=== PATIENT | female | born 1985 | race Caucasian/White ===

== ENCOUNTER 2016-06-25 09:29 | Emergency (ER) | payer MEDICAID ==
[2016-06-25 09:44] VITALS: BP 133/59
== END 2016-06-25 10:42 | disposition left against medical advice (07) ==
LOC: ER 09:29
DX: Z53.21 Procedure and treatment not carried out due to patient leaving prior to being seen by health care provider (principal)

== ENCOUNTER 2017-09-26 12:33 | Emergency (ER) | payer MEDICAID ==
[2017-09-26] MEDS ORDERED: DEXAMETHASONE SOD PHOS INJ 10 MG/1 ML VIAL IM ONE (13:36)
[2017-09-26] MEDS ORDERED: KETOROLAC TROMETHAMINE 60 MG/2 ML SDV IM ONE (13:36)
--- NOTE | 2017-09-26 13:37 | ER Document Report ---
ED General - General Chief Complaint: Sore Throat Stated Complaint: SORE THROAT Time Seen by Provider: 09/26/17 13:17 Mode of Arrival: Ambulatory Information source: Patient Notes: 31-year-old female presents with complaints of sore throat fever body aches. Patient believes she has strep Patient has no known sick contacts, denies any nausea vomiting TRAVEL OUTSIDE OF THE [place] IN LAST 30 DAYS: No - HPI Onset: Yesterday Onset/Duration: Sudden Quality of pain: Achy Severity: Mild Pain Level: 1 Associated symptoms: Body/muscle aches, Fever, Sore throat Exacerbated by: Denies Relieved by: Denies Similar symptoms previously: No Recently seen / treated by doctor: No - Related Data Allergies/Adverse Reactions: No Known Allergies Allergy (Verified 09/26/17 12:34) Past Medical History - Social History Smoking Status: Never Smoker Cigarette use (# per day): No Chew tobacco use (# tins/day): No Smoking Education Provided: No Frequency of alcohol use: None Drug Abuse: None Family History: Reviewed & Not Pertinent Patient has suicidal ideation: No Patient has homicidal ideation: No Pulmonary Medical History: Denies: Hx Asthma Neurological Medical History: Reports: Hx Migraine Endocrine Medical History: Denies: Hx Diabetes Mellitus Type 2 Renal/ Medical History: Denies: Hx Peritoneal Dialysis Past Surgical History: Reports: Hx Section, Hx Cholecystectomy - Immunizations Hx Diphtheria, Pertussis, Tetanus Vaccination: Yes Hx Pneumococcal Vaccination: 04/28/00 Review of Systems - Review of Systems Notes: REVIEW OF SYSTEMS: CONSTITUTIONAL : Admits to fever EENT: Admits to sore throat CARDIOVASCULAR: Denies chest pain. Denies palpitations or racing or irregular heart beat. Denies ankle edema. RESPIRATORY: Denies cough, cold, or chest congestion. Denies shortness of breath, difficulty breathing, or wheezing. GASTROINTESTINAL: Denies abdominal pain or distention. Denies nausea, vomiting , or diarrhea. Denies blood in vomitus, stools, or per rectum. Denies black, tarry stools. Denies constipation. GENITOURINARY: Denies difficulty urinating, painful urination, burning, frequency, blood in urine, or discharge. FEMALE GENITOURINARY: Denies vaginal bleeding, heavy or abnormal periods, irregular periods. Denies vaginal discharge or odor. MUSCULOSKELETAL: Admits body aches SKIN: Denies rash, lesions or sores. HEMATOLOGIC : Denies easy bruising or bleeding. LYMPHATIC: Denies swollen, enlarged glands. NEUROLOGICAL: Denies confusion or altered mental status. Denies passing out or loss of consciousness. Denies dizziness or lightheadedness. Denies headache. Denies weakness or paralysis or loss of use of either side. Denies problems with gait or speech. Denies sensory loss, numbness, or tingling. Denies seizures. PSYCHIATRIC: Denies anxiety or stress. Denies depression, suicidal ideation, or homicidal ideation. ALL OTHER SYSTEMS REVIEWED AND NEGATIVE. PHYSICAL EXAMINATION: GENERAL: Well-appearing, well-nourished and in no acute distress. HEAD: Atraumatic, normocephalic. EYES: Pupils equal round and reactive to light, extraocular movements intact, conjunctiva are normal. ENT: Bilateral tonsillar enlargement with exudates uvula midline airway patent NECK: Normal range of motion, supple without lymphadenopathy LUNGS: Breath sounds clear to auscultation bilaterally and equal. No wheezes rales or rhonchi. HEART: Regular rate and rhythm without murmurs ABDOMEN: Soft, nontender, nondistended abdomen. No guarding, no rebound. No masses appreciated. Female : deferred Musculoskeletal: Normal range of motion, no pitting or edema. No cyanosis. NEUROLOGICAL: Cranial nerves grossly intact. Normal speech, normal gait. Normal sensory, motor exams PSYCH: Normal mood, normal affect. SKIN: Warm, Dry, normal turgor, no rashes or lesions noted. Dictation was performed using [employer] voice recognition software Physical Exam - Vital signs Vitals: Temp Pulse Resp BP Pulse Ox 99.2 F 104 H 18 127/68 H 97 09/26/17 12:40 09/26/17 12:40 09/26/17 12:40 09/26/17 12:40 09/26/17 12:40 Course - Re-evaluation Re-evalutation: 09/26/17 13:47 Patient strep was positive, patient will be treated with antibiotics and Decadron Toradol \ After performing a Medical Screening Examination, I estimate there is LOW risk for CENTRAL CORD SYNDROME, LUDWIGS ANGINA, PERITONSILLAR ABSCESS, RETROPHARYNGEAL ABSCESS, EPIDURAL MASS LESION, SEVERE SPINAL STENOSIS, ARTERIAL DISSECTION, MENINGITIS, or ACUTE CORONARY SYNDROME, thus I consider the discharge disposition reasonable. I have reevaluated this patient multiple times and no significant life threatening changes are noted. The patient and I have discussed the diagnosis and risks, and we agree with discharging home to follow-up on an outpatient basis with the understanding that symptoms and presentations can change. We also discussed returning to the Emergency Department immediately if new or worsening symptoms occur. We have discussed the symptoms which are most concerning (e.g., saddle anesthesia, urinary or bowel incontinence or retention, changing or worsening pain) that necessitate immediate return. - Vital Signs Vital signs: Temp Pulse Resp BP Pulse Ox 99.6 F 90 18 130/58 H 97 09/26/17 14:06 09/26/17 14:06 09/26/17 14:06 09/26/17 14:06 09/26/17 14:06 Discharge - Discharge Clinical Impression: Strep pharyngitis, Body aches Condition: Stable Disposition: HOME, SELF-CARE Instructions: Strep Throat ([facility]) Prescriptions: Amoxicillin 875 mg PO BID #20 tablet Referrals: JOEY ARORA DO [Primary Care Provider] - Follow up as needed
[2017-09-26 14:06] VITALS: BP 130/58
== END 2017-09-26 14:08 | disposition home or self-care (01) ==
LOC: ER 12:33
DX: J02.0 Streptococcal pharyngitis (principal); M79.1 Myalgia; R50.9 Fever, unspecified; E11.9 Type 2 diabetes mellitus without complications
CPT/HCPCS: 99283; 96372; 87880; J1885; J1100

== ENCOUNTER 2017-12-10 23:28 | Emergency (ER) | payer MEDICAID ==
[2017-12-10 23:51] VITALS: BP 147/72
[2017-12-11] MEDS ORDERED: METOCLOPRAMIDE HCL INJ/PF 10 MG/2 ML SDV IV ONE (01:02)
[2017-12-11] MEDS ORDERED: NORMAL SALINE 1000 ML 1,000 ML IV ONE (01:02)
[2017-12-11 01:39] LABS: ABSOLUTE LYMPHOCYTES (AUTO) 2.4 10^3/uL (0.5-4.7); ABSOLUTE MONOCYTES (AUTO) 0.9 10^3/uL (0.1-1.4); ABSOLUTE NEUT (AUTO) 12.8 10^3/uL (1.7-8.2); BASOPHILS % (AUTO) 0.1 % (0-2); HEMATOCRIT 37.9 % (36.0-47.0); HEMOGLOBIN 13.4 g/dL (12.0-15.5); LYMPHOCYTES % (AUTO) 15.1 % (13-45); MEAN CORPUSCULAR HEMOGLOBIN 31.7 pg (27.0-33.4); MEAN CORPUSCULAR HGB CONC 35.3 g/dL (32.0-36.0); MEAN CORPUSCULAR VOLUME 90 fl (80-97); MONOCYTES % (AUTO) 5.5 % (3-13); PLATELET COUNT 367 10^3/uL (150-450); RED BLOOD COUNT 4.22 10^6/uL (3.72-5.28); SEGMENTED NEUTROPHILS % (AUTO) 79.3 % (42-78); TOTAL CELLS COUNTED % (AUTO) 100 %; WHITE BLOOD COUNT 16.2 10^3/uL (4.0-10.5)
[2017-12-11 01:57] LABS: ANION GAP 17 (5-19); BLOOD UREA NITROGEN 8 mg/dL (7-20); CALCIUM 10.1 mg/dL (8.4-10.2); CARBON DIOXIDE 21 mmol/L (22-30); CHLORIDE 100 mmol/L (98-107); GLUCOSE 115 mg/dL (75-110); SODIUM 137.6 mmol/L (137-145)
[2017-12-11 02:02] LABS: POTASSIUM 2.8 mmol/L (3.6-5.0)
[2017-12-11] MEDS ORDERED: POTASSIUM CHLORIDE 10 MEQ CAPSULE.ER PO ONE (02:04)
[2017-12-11] MEDS ORDERED: POTASSI CL 20 MEQ/50 ML RIDER 20 MEQ/50 ML RTUPB IV ONE (02:04)
[2017-12-11] MEDS ORDERED: RINGERS SOLUTION,LACTATED 1,000 ML IV ONE (02:05)
--- NOTE | 2017-12-11 02:07 | ER Document Report ---
ED General - General Chief Complaint: Nausea/Vomiting Stated Complaint: VOMITING Time Seen by Provider: 12/11/17 00:55 Notes: Patient is a 32-year-old female who is about 10 weeks presents with complaint of having a lot of vomiting for her . She says she just drove down here from [place]. She was seen approximately 3-4 days ago up in [facility] for the same thing. She said she had ultrasound which showed that the baby looked okay but her potassium was low and she continued to vomit. The prescribe her Phenergan but she said she went to [facility] and he wanted over $ 60 for the Phenergan and she cannot afford it. She also has not been taking any supplement potassium. She also says she was told she had a urinary tract infection but could not afford the antibiotic and therefore has not been taking that. She denies any fevers. No abdominal pain. No diarrhea. No vaginal bleeding or abnormal discharge. TRAVEL OUTSIDE OF THE [place] IN LAST 30 DAYS: No - Related Data Allergies/Adverse Reactions: No Known Allergies Allergy (Verified 09/26/17 12:34) Past Medical History - Social History Smoking Status: Unknown if Ever Smoked Frequency of alcohol use: None Drug Abuse: None Family History: Reviewed & Not Pertinent Pulmonary Medical History: Denies: Hx Asthma Neurological Medical History: Reports: Hx Migraine Endocrine Medical History: Denies: Hx Diabetes Mellitus Type 2 Renal/ Medical History: Denies: Hx Peritoneal Dialysis Past Surgical History: Reports: Hx Section, Hx Cholecystectomy - Immunizations Hx Diphtheria, Pertussis, Tetanus Vaccination: Yes Hx Pneumococcal Vaccination: 04/28/00 Review of Systems - Review of Systems Notes: My Normal Review Basic REVIEW OF SYSTEMS: CONSTITUTIONAL : Denies fever, chills, or sweats. Denies recent illness. RESPIRATORY: Denies cough, cold, or chest congestion. Denies shortness of breath, difficulty breathing, or wheezing. GASTROINTESTINAL: Denies abdominal pain. recurrent vomiting GENITOURINARY: Denies difficulty urinating, painful urination, burning, frequency, or blood in urine. FEMALE GENITOURINARY: Denies vaginal bleeding, abnormal or irregular periods. LMP: 10 weeks MUSCULOSKELETAL: Denies neck or back pain or joint pain or swelling. SKIN: Denies rash or skin lesions. NEUROLOGICAL: Denies altered mental status or loss of consciousness. Denies headache. Denies weakness or paralysis or loss of use of either side. Denies problems with gait or speech. Denies sensory or motor loss. ALL OTHER SYSTEMS REVIEWED AND NEGATIVE. Physical Exam - Vital signs Vitals: Temp Pulse Resp BP Pulse Ox 97.9 F 68 18 147/72 H 100 12/10/17 23:50 12/10/17 23:50 12/10/17 23:50 12/10/17 23:50 12/10/17 23:50 - Notes Notes: General Appearance: Well nourished, alert, cooperative, no acute distress, no obvious discomfort. Actively vomiting on exam. Vitals: reviewed, See vital signs table. Eyes: PERRL, EOMI, Conjuctiva clear Mouth: No decreasd moisture Lungs: No wheezing, No rales, No rhonci, No accessory muscle use, good air exchange bilaterally. Heart: Normal rate, Regular rythm, No murmur, no rub Abdomen: Normal BS, soft, No rigidity, No abdominal tenderness, No guarding, no rebound, no abdominal masses, no organomegaly Extremities: strength 5/5 in all extremities, good pulses in all extremities, no swelling or tenderness in the extremities, no edema. Skin: warm, dry, appropriate color, no rash Neuro: speech clear, oriented x 3, normal affect, responds appropriately to questions. Course - Re-evaluation Re-evalutation: 12/11/17 02:06 On reevaluation the Reglan has helped her nausea vomiting significantly. Says feels much and proved. Chemistry panel shows that she is hypokalemic. I will give her 20 mg once the IV as well as see if she can tolerate p.o. potassium. Also give another liter of fluids. I am still waiting for urine sample. 12/11/17 02:40 She has potassium is low which is concerning to me. Also she is negative and urine sample. She says she did urinate but did not urinate the cup and does flush the toilet. She wants to leave. I informed that she should really allow us to replete her potassium. She says that her nausea is better and she wants to go home and she does not want to get medications here. I informed her the low potassium she could have an arrhythmia and became really sick. Informed arrhythmias can be fatal. Patient understands this but still refuses to stay. Patient is awake and alert and oriented. She is not showing any signs of sedation. She shows capacity to make her own decisions and therefore do not feel I can hold her against her will. Patient wants to sign out AGAINST MEDICAL ADVICE. I will still write prescriptions for both potassium and Reglan. She also said that she did have a UTI a few days ago when she is up in [place]. She did not fill the prescription which she says it was too expensive. I informed her I would at least write a prescription for Keflex being that she recently had a diagnosis of UTI. I informed her it is $4 at [facility]. Patient said she would be able to afford this. Dictation of this chart was performed using voice recognition software; therefore, there may be some unintended grammatical errors. 12/11/17 05:22 - Vital Signs Vital signs: Temp Pulse Resp BP Pulse Ox 97.9 F 68 18 147/72 H 100 12/10/17 23:50 12/10/17 23:50 12/10/17 23:50 12/10/17 23:50 12/10/17 23:50 - Laboratory Result Diagrams: 12/11/17 01:30 12/11/17 01:30 Laboratory results interpreted by me: 12/11/17 12/11/17 01:30 01:30 WBC 16.2 H Seg Neutrophils % 79.3 H Absolute Neutrophils 12.8 H Potassium 2.8 L* Carbon Dioxide 21 L Glucose 115 H Discharge - Discharge Clinical Impression: Hyperemesis gravidarum, Hypokalemia Condition: Good Disposition: AGAINST MEDICAL ADVICE Additional Instructions: PLease take potassium as prescribed. Please take the nausea medicine . Please take the antibiotic due to your recent diagnosis of uti. We want you to stay longer in the ER so I can correct your potassium. As discussed with you having a low potassium can lead to a heart arrhythmia or even . Also, continued stress on your body from vomiting and electrolyte abnormalities can lead to miscarriage and loiss of your baby. We respect your decision to leave. Even though you are leaving we are not upset or mad. We just want what is best for you and therefore we encourage you to come back anytime if you have any recurrence of your symptoms. Please follow up with the health department or OB physician as soon as possible. Please take a vitamin every day. Prescriptions: Cephalexin Monohydrate [Keflex 500 mg Capsule] 500 mg PO BID 5 Days #14 capsule Metoclopramide HCl [Reglan 10 mg Tablet] 1 tab PO ASDIR PRN #25 tablet PRN Reason: Potassium Chloride 20 meq PO DAILY #14 capsule.er Referrals: AILYN BANERJEE MD [ACTIVE STAFF] - 12/12/17
== END 2017-12-11 02:59 | disposition left against medical advice (07) ==
LOC: ER 23:28
DX: O21.1 Hyperemesis gravidarum with metabolic disturbance (principal); Z3A.10 10 weeks gestation of pregnancy
CPT/HCPCS: 99284; 96361; 96374; 36415; 83735; 85025; 80048; J2765; J7030

== ENCOUNTER 2017-12-11 18:11 | Emergency (ER) | payer MEDICAID ==
[2017-12-11] MEDS ORDERED: RINGERS SOLUTION,LACTATED 1,000 ML IV ONE (19:16)
[2017-12-11] MEDS ORDERED: PROCHLORPERAZINE EDISYLATE INJ 10 MG/2 ML VIAL IV ONE (19:16)
--- NOTE | 2017-12-11 19:19 | ER Document Report ---
ED Medical Screen (RME) - General Chief Complaint: Vag Bleeding, +preg <12wks Stated Complaint: HEAVY VAGINAL BLEEDING Time Seen by Provider: 12/11/17 19:15 Notes: 32 years old female presents today with continuous vaginal bleeding she states that she soaked a towel with it today. She was seen here yesterday, left AGAINST MEDICAL ADVICE., Apparently her potassium was low yesterday. She was continuously vomiting since she left. TRAVEL OUTSIDE OF THE [place] IN LAST 30 DAYS: No - Related Data Allergies/Adverse Reactions: No Known Allergies Allergy (Verified 12/11/17 18:23) Past Medical History - Social History Chew tobacco use (# tins/day): No Frequency of alcohol use: None Family history: Reviewed & Not Pertinent Pulmonary Medical History: Denies: Hx Asthma Neurological Medical History: Reports: Hx Migraine Endocrine Medical History: Denies: Hx Diabetes Mellitus Type 2 Renal/ Medical History: Denies: Hx Peritoneal Dialysis Past Surgical History: Reports: Hx Section, Hx Cholecystectomy - Immunizations Hx Diphtheria, Pertussis, Tetanus Vaccination: Yes Physical Exam - Vital signs Vitals: Temp Pulse Resp BP Pulse Ox 98.4 F 63 18 151/81 H 99 12/11/17 18:29 12/11/17 18:29 12/11/17 18:29 12/11/17 18:29 12/11/17 18:29 Course - Vital Signs Vital signs: Temp Pulse Resp BP Pulse Ox 98.4 F 63 18 151/81 H 99 12/11/17 18:29 12/11/17 18:29 12/11/17 18:29 12/11/17 18:29 12/11/17 18:29 Doctor's Discharge - Discharge Referrals: JOEY ARORA DO [Primary Care Provider] - Follow up as needed
[2017-12-11] MEDS ORDERED: DIPHENHYDRAMINE HCL 50 MG/ML VIAL IV ONE (20:00)
[2017-12-11 20:33] LABS: ABSOLUTE LYMPHOCYTES (AUTO) 2.6 10^3/uL (0.5-4.7); ABSOLUTE MONOCYTES (AUTO) 0.8 10^3/uL (0.1-1.4); ABSOLUTE NEUT (AUTO) 10.2 10^3/uL (1.7-8.2); BASOPHILS % (AUTO) 0.1 % (0-2); HEMATOCRIT 37.6 % (36.0-47.0); HEMOGLOBIN 13.2 g/dL (12.0-15.5); LYMPHOCYTES % (AUTO) 19.4 % (13-45); MEAN CORPUSCULAR HEMOGLOBIN 31.6 pg (27.0-33.4); MEAN CORPUSCULAR HGB CONC 35.1 g/dL (32.0-36.0); MEAN CORPUSCULAR VOLUME 90 fl (80-97); MONOCYTES % (AUTO) 5.7 % (3-13); PLATELET COUNT 356 10^3/uL (150-450); RED BLOOD COUNT 4.18 10^6/uL (3.72-5.28); RED CELL DISTRIBUTION WIDTH 12.9 % (11.5-14.0); SEGMENTED NEUTROPHILS % (AUTO) 74.8 % (42-78); TOTAL CELLS COUNTED % (AUTO) 100 %; WHITE BLOOD COUNT 13.6 10^3/uL (4.0-10.5)
--- NOTE | 2017-12-11 20:43 | ER Document Report ---
ED GI/ - General Chief Complaint: Vag Bleeding, +preg <12wks Stated Complaint: HEAVY VAGINAL BLEEDING Time Seen by Provider: 12/11/17 19:15 Notes: Patient is a 32-year-old female, A1 at 10 weeks gestation by first trimester ultrasound, the comes emergency department for chief complaint of uncontrolled vomiting, abdominal cramping, and vaginal bleeding that started earlier today. She denies fever chills, passing out, she does report small amount of blood in the vomit, states this looks like little spots and flecks. No recent bowel movement. Patient states she was seen yesterday, she chose to leave and she left AGAINST MEDICAL ADVICE, she was prescribed potassium, Keflex , and nausea medicine but she states that she went home, slept, started vomiting again, and has not filled medications yet. She has had a cholecystectomy and . She denies any other medical history. She is new to the area from [place]. Significant other at bedside. TRAVEL OUTSIDE OF THE [place] IN LAST 30 DAYS: No - Related Data Allergies/Adverse Reactions: No Known Allergies Allergy (Verified 12/11/17 18:23) Past Medical History - General Information source: Patient, Relative - Social History Smoking Status: Never Smoker Chew tobacco use (# tins/day): No Frequency of alcohol use: None Drug Abuse: None Lives with: Family Family History: Reviewed & Not Pertinent Patient has suicidal ideation: No Patient has homicidal ideation: No Pulmonary Medical History: Denies: Hx Asthma Neurological Medical History: Reports: Hx Migraine Endocrine Medical History: Denies: Hx Diabetes Mellitus Type 2 Renal/ Medical History: Denies: Hx Peritoneal Dialysis Past Surgical History: Reports: Hx Section, Hx Cholecystectomy - Immunizations Hx Diphtheria, Pertussis, Tetanus Vaccination: Yes Hx Pneumococcal Vaccination: 04/28/00 Review of Systems - Review of Systems Constitutional: See HPI EENT: No symptoms reported Cardiovascular: No symptoms reported Respiratory: No symptoms reported Gastrointestinal: See HPI Genitourinary: No symptoms reported Female Genitourinary: See HPI Musculoskeletal: No symptoms reported Skin: No symptoms reported Hematologic/Lymphatic: No symptoms reported Neurological/Psychological: No symptoms reported Physical Exam - Vital signs Vitals: Temp Pulse Resp BP Pulse Ox 98.4 F 63 18 151/81 H 99 12/11/17 18:29 12/11/17 18:29 12/11/17 18:29 12/11/17 18:29 12/11/17 18:29 - Notes Notes: GENERAL: Alert. No acute distress. HEAD: Normocephalic, atraumatic. EYES: Pupils equal, round, and reactive to light. Extraocular movements intact. ENT: Oral mucosa dry, tongue midline. NECK: Full range of motion. Supple. Trachea midline. LUNGS: Clear to auscultation bilaterally, no wheezes, rales, or rhonchi. No respiratory distress. HEART: Regular rate and rhythm. No murmur ABDOMEN: Soft, non-tender. Non-distended. Bowel sounds present in all 4 quadrants. EXTREMITIES: Moves all 4 extremities spontaneously. No edema, normal radial and dorsalis pedis pulses bilaterally. No cyanosis. BACK: no cervical, thoracic, lumbar midline tenderness. No saddle anesthesia, normal distal neurovascular exam. NEUROLOGICAL: Alert and oriented x3. Normal speech. [cranial nerves II through XII grossly intact]. PSYCH: Easily becomes irritable SKIN: Warm, dry, normal turgor. No rashes or lesions noted. Course - Re-evaluation Re-evalutation: Patient is not in any distress on exam, her belly is soft, she does have dry mucous membranes. Ultrasound performed and shows no acute findings, shows intrauterine gestation. Patient denying any current bleeding. CBC shows mild leukocytosis, nonspecific given patient's exam and vital signs. Chemistry shows hypokalemia again at 2.8. Magnesium checked and is unremarkable. Patient was given oral and IV potassium. EKG shows sinus rhythm, VT interval slightly shortened, no T-wave inversions or ST segment changes in consecutive leads. Patient had to be talked with several times before she agreed to each treatment and a lab recheck although she was not forced to stay and told she could leave at any time if she left AGAINST MEDICAL ADVICE. She chose not to leave AGAINST MEDICAL ADVICE. Her significant other was very supportive of her staying and receiving treatment. Urinalysis shows 80 ketones, some white blood cells and bacteria. Repeat BMP still shows low bicarbonate but shows normalized potassium. Discussed with patient, she has not vomited, she is tolerating p.o. without difficulty, she is not interested in staying. She already has prescriptions from previously for nausea and antibiotics. Discussed follow-up, return precautions, patient states understanding and agreement. - Vital Signs Vital signs: Temp Pulse Resp BP Pulse Ox 98.4 F 63 21 H 152/75 H 96 12/11/17 18:29 12/11/17 18:29 12/12/17 02:01 12/12/17 02:00 12/12/17 02:01 - Laboratory Result Diagrams: 12/11/17 19:53 12/12/17 01:35 Laboratory results interpreted by me: 12/11/17 12/11/17 12/11/17 19:53 19:53 21:27 WBC 13.6 H Absolute Neutrophils 10.2 H Sodium 136.9 L Potassium 2.8 L* Carbon Dioxide 20 L BUN 6 L Creatinine 0.50 L Direct Bilirubin 0.5 H AST 94 H ALT 145 H Beta HCG, Quant 88217.00 H Urine Protein 30 H Urine Ketones 80 H Urine Blood SMALL H Urine Urobilinogen 4.0 H 12/12/17 01:35 WBC Absolute Neutrophils Sodium Potassium Carbon Dioxide 18 L BUN 5 L Creatinine 0.48 L Direct Bilirubin AST ALT Beta HCG, Quant Urine Protein Urine Ketones Urine Blood Urine Urobilinogen Discharge - Discharge Clinical Impression: Hypokalemia, Hyperemesis gravidarum Condition: Stable Disposition: HOME, SELF-CARE Additional Instructions: Your potassium has been repleted. Take Keflex antibiotics, take nausea medicine , drink plenty fluids and rest. Follow-up with [facility] for additional evaluation and management. Return if you worsen including uncontrolled vomiting, passing out, fever, severe abdominal pain, heavy bleeding, or any other concerning or worsening symptoms. Forms: Treatment of Relative/Child Referrals: JOEY ARORA DO [Primary Care Provider] - Follow up as needed
[2017-12-11 20:59] LABS: ALANINE AMINOTRANSFERASE 145 U/L (9-52); ALBUMIN 4.2 g/dL (3.5-5.0); ALKALINE PHOSPHATASE 89 U/L (38-126); ANION GAP 15 (5-19); ASPARTATE AMINO TRANSFERASE 94 U/L (14-36); BILIRUBIN,DIRECT 0.5 mg/dL (0.0-0.4); BLOOD UREA NITROGEN 6 mg/dL (7-20); CALCIUM 9.5 mg/dL (8.4-10.2); CARBON DIOXIDE 20 mmol/L (22-30); CHLORIDE 102 mmol/L (98-107); GLUCOSE 98 mg/dL (75-110); SODIUM 136.9 mmol/L (137-145); TOTAL PROTEIN 7.8 g/dL (6.3-8.2)
--- NOTE | 2017-12-11 21:25 | RADIOLOGY REPORT (SQ) ---
EXAM DESCRIPTION: U/S OB TRANSVAG W/DOPPLER COMPLETED DATE/TIME: 12/11/2017 8:43 pm REASON FOR STUDY: 11 week with vaginal bleeding and abdomi COMPARISON: None. TECHNIQUE: Transvaginal and transabdominal static and realtime grayscale images acquired of the pelv is. Additional selected spectral and color Doppler images recorded. All images stored on PACs. bHCG: Pending. CLINICAL DATES: LMP 09/27/2017. 10 weeks 5 days. LIMITATIONS: None. FINDINGS: FETUS: Living intrauterine . ULTRASOUND EGA: 11 weeks 2 days ULTRASOUND SARAH: 06/30/2018 CRL: 4.5 cm FHR: 175 beats per minute. SUBCHORIONIC BLEED: No SIZE OF BLEED: Not applicable. UTERUS: No masses. No anomalies. CERVICAL LENGTH: 3 cm. Closed. RIGHT ADNEXA: Normal ovary with normal vascular flow. 2.4 x 1.9 x 1.8 cm. No adnexal free fluid. No adnexal masses. LEFT ADNEXA: Ovary not seen. No adnexal free fluid. No adnexal masses. FREE FLUID: None. OTHER: No other significant finding. IMPRESSION: LIVING INTRAUTERINE . EGA 11 weeks 2 days. Trimester of : First - 0 to 13 weeks. TECHNICAL DOCUMENTATION: JOB ID: [id number] [employer]- All Rights Reserved rev Reading location - IP/workstation name: [email or web address]
[2017-12-11 21:39] LABS: POTASSIUM 2.8 mmol/L (3.6-5.0)
[2017-12-11 21:45] LABS: APPEARANCE,URINE SLIGHTLY-CLOUDY; BILIRUBIN,URINE NEGATIVE (NEGATIVE); GLUCOSE, URINE NEGATIVE (NEGATIVE); KETONES,URINE 80 mg/dL (NEGATIVE); LEUKOCYTE ESTERASE,URINE NEGATIVE (NEGATIVE); NITRITE,URINE NEGATIVE (NEGATIVE); PROTEIN,URINE 30 mg/dL (NEGATIVE); URINE SPECIFIC GRAVITY 1.026
[2017-12-11] MEDS ORDERED: PROMETHAZINE HCL INJ 25 MG/1 ML VIAL IM ONE (21:47)
[2017-12-11 21:53] LABS: COLOR,URINE YELLOW
[2017-12-11] MEDS ORDERED: CEPHALEXIN 500 MG CAPSULE PO ONE (22:02)
[2017-12-11] MEDS: POTASSI CL 20 MEQ/50 ML RIDER 20 MEQ/50 ML RTUPB IV SCH ×2 (22:08→23:44)
[2017-12-11] MEDS ORDERED: POTASSIUM CHLORIDE 10 MEQ CAPSULE.ER PO ONE (23:16)
[2017-12-12 01:59] LABS: ANION GAP 15 (5-19); BLOOD UREA NITROGEN 5 mg/dL (7-20); CALCIUM 9.4 mg/dL (8.4-10.2); CARBON DIOXIDE 18 mmol/L (22-30); CHLORIDE 105 mmol/L (98-107); GLUCOSE 90 mg/dL (75-110); POTASSIUM 3.7 mmol/L (3.6-5.0); SODIUM 137.9 mmol/L (137-145)
[2017-12-12] MEDS ORDERED: ONDANSETRON ODT 4 MG TAB (6 TAB/ER DISP) PO PRN (02:10)
[2017-12-12 02:13] VITALS: BP 152/75
--- NOTE | 2017-12-12 07:19 | EKG REPORT ---
SEVERITY:- ABNORMAL ECG - SINUS RHYTHM SHORT [place] INTERVAL, ACCELERATED AV CONDUCTION PROLONGED QT INTERVAL : Confirmed by: Maxx Don MD 12-Dec-2017 07:18:40
== END 2017-12-12 02:15 | disposition home or self-care (01) ==
LOC: ER 18:11
DX: O21.1 Hyperemesis gravidarum with metabolic disturbance (principal); O20.9 Hemorrhage in early pregnancy, unspecified; R10.84 Generalized abdominal pain; Z3A.10 10 weeks gestation of pregnancy; Z90.49 Acquired absence of other specified parts of digestive tract
CPT/HCPCS: 93005; 99284; 96372; 96361; 96375; 96365; 96366; 86900; 86901; 36415; 87086; 84702; 83735; 85025; 87088; 80048; 80053; 81001; 87186; 76817; 93976; 93010; J1200; J0780; J2550; J3480; J7120

== ENCOUNTER 2018-01-29 09:33 | Emergency (ER) | payer MEDICAID ==
[2018-01-29 09:40] VITALS: BP 125/61
--- NOTE | 2018-01-29 10:03 | ER Document Report ---
ED Medical Screen (RME) - General Chief Complaint: Abdominal Pain Stated Complaint: ABDOMINAL PAIN Time Seen by Provider: 01/29/18 09:57 Notes: 32-year-old female patient is 18 weeks . She reports this morning about 4 AM her 11-year-old daughter who was sleeping in the same bed with her elbowed her in the right lower quadrant abdomen. 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 There is been no bleeding. She did check with a home heart monitor and the heart rate was normal. She she states her work wanted to be sure it was not a workers comp issue. Patient also mentioned that she was diagnosed with BV and received a prescription but never took it. I have greeted and performed a rapid initial assessment of this patient. A comprehensive ED assessment and evaluation of the patient, analysis of test results and completion of the medical decision making process will be conducted by additional ED providers. TRAVEL OUTSIDE OF THE [place] IN LAST 30 DAYS: No - Related Data Allergies/Adverse Reactions: No Known Allergies Allergy (Verified 01/29/18 09:34) Past Medical History - Social History Family history: Reviewed & Not Pertinent Pulmonary Medical History: Denies: Hx Asthma Neurological Medical History: Reports: Hx Migraine Endocrine Medical History: Denies: Hx Diabetes Mellitus Type 2 Renal/ Medical History: Denies: Hx Peritoneal Dialysis Past Surgical History: Reports: Hx Section, Hx Cholecystectomy - Immunizations Hx Diphtheria, Pertussis, Tetanus Vaccination: Yes Physical Exam - Vital signs Vitals: Temp Pulse Resp BP Pulse Ox 98.0 F 70 14 125/61 99 01/29/18 09:39 01/29/18 09:39 01/29/18 09:39 01/29/18 09:39 01/29/18 09:39 Course - Vital Signs Vital signs: Temp Pulse Resp BP Pulse Ox 98.0 F 70 14 125/61 99 01/29/18 09:39 01/29/18 09:39 01/29/18 09:39 01/29/18 09:39 01/29/18 09:39 Doctor's Discharge - Discharge Referrals: JOEY ARORA DO [Primary Care Provider] - Follow up as needed
[2018-01-29 10:27] LABS: APPEARANCE,URINE CLOUDY; BILIRUBIN,URINE NEGATIVE (NEGATIVE); GLUCOSE, URINE NEGATIVE (NEGATIVE); KETONES,URINE NEGATIVE (NEGATIVE); LEUKOCYTE ESTERASE,URINE NEGATIVE (NEGATIVE); NITRITE,URINE NEGATIVE (NEGATIVE); PROTEIN,URINE NEGATIVE (NEGATIVE); URINE SPECIFIC GRAVITY 1.023
[2018-01-29 10:31] LABS: COLOR,URINE YELLOW
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
--- NOTE | 2018-01-29 12:06 | RADIOLOGY REPORT (SQ) ---
EXAM DESCRIPTION: U/S OB 14+ TRNABD 1GES W/O DOP COMPLETED DATE/TIME: 01/29/2018 11:51 am REASON FOR STUDY: Abdominal pain and COMPARISON: None. TECHNIQUE: Static and Dynamic grayscale imaging performed of gravid uterus using transabdominal appr oach. Additional selected color Doppler and spectral images recorded. All stored on PACS. LIMITATIONS: None. FINDINGS: FETUSES SEEN:1 EGA: 19 weeks Calculated using BPD,FL,HC,AC documented on images. No discrepancy with clinical dates . SARAH: 06/25/2018 EFW: 279+/- 41 grams PERCENTILE: Not calculated ROHAN: Largest pocket 4.7 cm PLACENTA: Posterior grade 1 PRESENTATION: Variable ANATOMY: HEART RATE: 137 beats per minute. FOUR CHAMBER HEART: Visualized. THREE VESSEL CORD: Yes. CORD INSERTION: Visualized. KIDNEYS AND BLADDER: Visualized. Appear normal. STOMACH: Stomach is not visualized. SPINE: Normal as visualized. BRAIN AND LATERAL VENTRICLES: Visualized. Appear normal. OTHER: No other significant finding. MATERNAL ADNEXA: Maternal ovaries not visualized. CERVICAL LENGTH: 2.4 Closed. OTHER: No other significant finding. IMPRESSION: LIVING INTRAUTERINE . ESTIMATED GESTATIONAL AGE 19 weeks NO VISUALIZED ANOMALIES. Trimester of : Second trimester - 13 weeks 1 day to 27 weeks 6 days. TECHNICAL DOCUMENTATION: JOB ID: [id number] [employer]- All Rights Reserved Reading location - IP/workstation name: [email or web address]
== END 2018-01-29 14:43 | disposition home or self-care (01) ==
LOC: ER 09:33
DX: O26.92 Pregnancy related conditions, unspecified, second trimester (principal); R10.9 Unspecified abdominal pain; Z3A.19 19 weeks gestation of pregnancy; Z90.49 Acquired absence of other specified parts of digestive tract
CPT/HCPCS: 36415; 76805; 81001; 84702; 99284

== ENCOUNTER 2018-02-21 17:14 | Emergency (ER) | payer MEDICAID ==
[2018-02-21 17:18] VITALS: BP 120/54
[2018-02-21 17:51] LABS: APPEARANCE,URINE SLIGHTLY-CLOUDY; BILIRUBIN,URINE NEGATIVE (NEGATIVE); COLOR,URINE YELLOW; GLUCOSE, URINE NEGATIVE (NEGATIVE); KETONES,URINE NEGATIVE (NEGATIVE); LEUKOCYTE ESTERASE,URINE NEGATIVE (NEGATIVE); NITRITE,URINE NEGATIVE (NEGATIVE); PROTEIN,URINE NEGATIVE (NEGATIVE); URINE SPECIFIC GRAVITY 1.017; UROBILINOGEN,URINE NEGATIVE mg/dL (<2.0)
--- NOTE | 2018-02-21 19:00 | RADIOLOGY REPORT (SQ) ---
EXAM DESCRIPTION: U/S RETROPERITON (RENAL/AORTA) COMPLETED DATE/TIME: 02/21/2018 6:39 pm REASON FOR STUDY: LEFT FLANK PAIN . The patient is 22 weeks . COMPARISON: OB ultrasound 01/29/2018. TECHNIQUE: Grayscale images acquired of the kidneys and bladder and recorded on PACS. Additional sim ected color Doppler images recorded. LIMITATIONS: None. FINDINGS: RIGHT KIDNEY: The right kidney measures 12.5 x 4.5 x 5.3 cm. No hydronephrosis. No calci fications. LEFT KIDNEY: The left kidney measures 12.5 x 5.6 x 5.9 cm. No hydronephrosis. No calcifications. BLADDER: Not well distended. IMPRESSION: No hydronephrosis or renal calcifications identified. TECHNICAL DOCUMENTATION: JOB ID: [id number] 2010 [employer]- All Rights Reserved Reading location - IP/workstation name: [email or web address]
[2018-02-21] MEDS ORDERED: LIDOCAINE 1% INJ-PF (10 MG/ML) 30 ML SDV INJ ONE (19:11)
[2018-02-21] MEDS ORDERED: CEFTRIAXONE INJ 1000 MG VIAL IM ONE (19:11)
--- NOTE | 2018-02-21 19:19 | ER Document Report ---
HPI - HPI Pain Level: 0 Notes: Patient is a 32-year-old female who presents with chief complaint of left flank pain and dysuria. Patient reports that she is approximately 5 months . Patient denies any fever, abdominal pain or, vaginal bleeding or discharge. Patient reports history of kidney stones and UTIs. - REPRODUCTIVE Reproductive: DENIES: : Past Medical History - General Information source: Patient - Social History Smoking Status: Never Smoker Family History: Reviewed & Not Pertinent Patient has suicidal ideation: No Patient has homicidal ideation: No Pulmonary Medical History: Denies: Hx Asthma Neurological Medical History: Reports: Hx Migraine Endocrine Medical History: Denies: Hx Diabetes Mellitus Type 2 Renal/ Medical History: Reports: Hx Kidney Stones. Denies: Hx Peritoneal Dialysis Past Surgical History: Reports: Hx Section, Hx Cholecystectomy - Immunizations Hx Diphtheria, Pertussis, Tetanus Vaccination: Yes Hx Pneumococcal Vaccination: 04/28/00 Vertical Provider Document - CONSTITUTIONAL Notes: PHYSICAL EXAMINATION: GENERAL: Well-appearing, well-nourished and in no acute distress. HEAD: Atraumatic, normocephalic. EYES: Pupils equal round and reactive to light, extraocular movements intact, conjunctiva are normal. ENT: Nares patent, oropharynx clear without exudates. Moist mucous membranes. NECK: Normal range of motion, supple without lymphadenopathy LUNGS: Breath sounds clear to auscultation bilaterally and equal. No wheezes rales or rhonchi. HEART: Regular rate and rhythm without murmurs ABDOMEN: Soft, nontender, nondistended abdomen. No guarding, no rebound. No masses appreciated. Female : No CVA tenderness. Musculoskeletal: Normal range of motion, no pitting or edema. No cyanosis. NEUROLOGICAL: Cranial nerves grossly intact. Normal speech, normal gait. Normal sensory, motor exams PSYCH: Normal mood, normal affect. SKIN: Warm, Dry, normal turgor, no rashes or lesions noted. - INFECTION CONTROL TRAVEL OUTSIDE OF THE [place] IN LAST 30 DAYS: No Course - Re-evaluation Re-evalutation: Urinalysis with moderate blood, otherwise does not appear to be infected. Patient was sent down for a retroperitoneal ultrasound which was normal, no signs of hydronephrosis or renal calculi. Will give patient one-time dose of IM Rocephin as patient is 5 months and does complain of dysuria. Urine will be sent for culture. Patient reports she has a follow-up scheduled with her OB for 02/24/18. - Vital Signs Vital signs: Temp Pulse Resp BP Pulse Ox 98.0 F 79 16 120/54 L 99 02/21/18 17:17 02/21/18 17:17 02/21/18 17:17 02/21/18 17:17 02/21/18 17:17 - Laboratory Laboratory results interpreted by me: 02/21/18 17:32 Urine Blood MODERATE H Discharge - Discharge Clinical Impression: Hematuria Qualifiers: Hematuria type: unspecified type Qualified Code(s): R31.9 - Hematuria, unspecified Back pain Qualifiers: Back pain location: low back pain Chronicity: acute Back pain laterality: left Sciatica presence: without sciatica Qualified Code(s): M54.5 - Low back pain Condition: Stable Disposition: HOME, SELF-CARE Additional Instructions: Hematuria Hematuria, or blood in your urine, can be caused by minor medical problems , such as a bladder infection, or by more serious medical conditions, such as kidney stones or even tumors of the bladder or kidney. If the cause of the hematuria is known (such as a bladder infection) and can be treated, it may not need further evaluation. If the cause is not known, it will usually require further evaluation by a specialist, such as a urologist. In particular, unexplained hematuria in the older patient must be evaluated to rule out a serious condition, such as a bladder or kidney tumor. If the hematuria worsens or you are passing clots and then are unable to urinate, you should be re-evaluated. A catheter may need to be placed in the bladder to permit passage of urine. If you develop high fever, severe pain, or other new or worsening symptoms, return to the Emergency Department for re- evaluation. Your ultrasound was normal of your kidneys. I am giving you 1 g of IM Rocephin to cover you for possible urinary tract infection. We will send the urine down for culture, if anything abnormal grows we will call you. I would like you to keep your follow-up on 02/24/18 with your OB and have them recheck your urine. Forms: Return to Work Referrals: JOEY ARORA, [Primary Care Provider] - Follow up as needed
== END 2018-02-21 19:50 | disposition home or self-care (01) ==
LOC: ER 17:14
DX: O26.899 Other specified pregnancy related conditions, unspecified trimester (principal); R31.9 Hematuria, unspecified; R30.0 Dysuria; R10.9 Unspecified abdominal pain; O99.89 Other specified diseases and conditions complicating pregnancy, childbirth and the puerperium; M54.5 Low back pain; Z3A.00 Weeks of gestation of pregnancy not specified; Z87.440 Personal history of urinary (tract) infections; Z87.442 Personal history of urinary calculi
CPT/HCPCS: 99284; 96372; 87086; 81001; 76770; J3490; J0696

== ENCOUNTER 2018-04-27 19:04 | Observation (INO) | payer MEDICAID ==
[2018-04-27 20:23] LABS: ABSOLUTE EOSINOPHILS # (AUTO) 0.1 10^3/uL (0.0-0.6); ABSOLUTE LYMPHOCYTES (AUTO) 2.5 10^3/uL (0.5-4.7); ABSOLUTE MONOCYTES (AUTO) 0.8 10^3/uL (0.1-1.4); ABSOLUTE NEUT (AUTO) 8.4 10^3/uL (1.7-8.2); BASOPHILS % (AUTO) 0.3 % (0-2); EOSINOPHILS % (AUTO) 0.7 % (0-6); HEMATOCRIT 30.5 % (36.0-47.0); HEMOGLOBIN 10.6 g/dL (12.0-15.5); LYMPHOCYTES % (AUTO) 21.5 % (13-45); MEAN CORPUSCULAR HEMOGLOBIN 31.4 pg (27.0-33.4); MEAN CORPUSCULAR HGB CONC 34.6 g/dL (32.0-36.0); MEAN CORPUSCULAR VOLUME 91 fl (80-97); MONOCYTES % (AUTO) 6.6 % (3-13); PLATELET COUNT 259 10^3/uL (150-450); RED BLOOD COUNT 3.36 10^6/uL (3.72-5.28); RED CELL DISTRIBUTION WIDTH 12.2 % (11.5-14.0); SEGMENTED NEUTROPHILS % (AUTO) 70.9 % (42-78); TOTAL CELLS COUNTED % (AUTO) 100 %; WHITE BLOOD COUNT 11.8 10^3/uL (4.0-10.5)
[2018-04-27] MEDS ORDERED: MAGNESIUM SULFATE 4 GM/100 ML RTUPB IV ONE ×2 (20:24→20:27)
[2018-04-27] MEDS ORDERED: BETAMET ACET/BETAMET NA INJ 6 MG/1 ML IM ONE (20:24)
[2018-04-27] MEDS ORDERED: BETAMET ACET/BETAMET NA INJ 6 MG/1 ML ONE (20:26)
[2018-04-27] MEDS ORDERED: PENICILLIN G-K 5 MILLION UNIT VIAL ONE (20:27)
[2018-04-27] MEDS ORDERED: PENICILLIN G POTASSIUM 5,000,000 UNIT in DEXTROSE 5%-WATER 100 ML IV ONE (20:27)
[2018-04-27] MEDS ORDERED: RINGERS SOLUTION,LACTATED 1,000 ML IV ONE (20:27)
[2018-04-27] MEDS ORDERED: MAGNESIUM SULFATE 20 GM/500 ML RTUINJ IV ONE (20:27)
--- NOTE | 2018-04-27 20:35 | Admission Physical ---
Datetime Report Generated by CPN: 04/27/2018 20:34 CURRENT ADMISSION Chief Complaint: Vaginal Bleeding Admit Impression : , Intrauterine ; No Active Labor; Intact Membranes; Observation/Evaluation Admit Plan: Admit to Unit; Observation/Evaluation ALLERGIES Medication Allergies: No Medication Allergies: No Known Allergies (02/21/2018) Latex: No Latex Allergies OBSTETRICAL HISTORY EDC: 07/04/2018 00:00 : 3 Para: 1 Gestational Diabetes: No Rh Sensitization: No Incompetent Cervix: No LISA: No Infertility: No IUGR: No Hx Previous C/S: No Macrosomia: No Hx Loss/Stillborn: No PIH: No Hx : No Placenta Previa/Abruption: No Depression/PP Depression: No PTL/PROM: No Post Hemorrhage: No SEE RECORDS Alcohol: No Marijuana : No Cocaine: No Other Illicit Drugs: No Cigarettes: Never Smoker. [id number] MEDICAL HISTORY Heart Disease: Yes Medical History Comments: heart murmur PHYSICAL EXAM General: Normal HEENT: Normal Neurologic: Normal Thyroid: Deferred Heart: Normal Lungs: Normal Breast: Deferred Back: Normal Abdomen: Normal Genitourinary Exam: Normal Extremities: Normal DTRs: Normal Pelvic Type: Adequate Vital Signs: Reviewed VAGINAL EXAM Dilatation: 0 Effacement: 0 Station: -3 Contraction Comments: rare MEMBRANES Membranes: Intact FETUS A EGA: 30.2 Monitoring: External US FHR- Baseline: 155 Variability: Moderate 6-25bpm Accelerations: 15X15 Decelerations: None FHR Category: Category I Admit Comment: 32yo at 30+2ega presents for vaginal bleeding after intercourse. Blood ran down leg and was in toilet. Unable to provide a urine specimen due to bleeding. ON SSE approx 20ml of blood in vault, once cleared no e/o bleeding from cervical os. Cervix visually and digitally closed. Last US on 04/16 and no e/o previa. Labs for coags and KB and US ordered. Type and Screen done. Celestone for FLM and Mag for neuroprotection, PCN for GBS prophy. Will observe for now. No need for transfer at this time as bleeding seems to have ceased. INFORMED CONSENT Informed Consent Obtained: Risks, Benefits and Alternatives Discussed Signature: with User ID: [email or web address]
[2018-04-27 20:36] LABS: FIBRINOGEN 486 mg/dL (209-497); INTERNATIONAL RATION (INR) 0.86; PARTIAL THROMBOPLASTIN TIME 25.8 SEC (23.5-35.8); PROTHROMBIN TIME 12.1 SEC (11.4-15.4)
[2018-04-27 20:38] LABS: ALANINE AMINOTRANSFERASE 26 U/L (9-52); ALBUMIN 2.9 g/dL (3.5-5.0); ALKALINE PHOSPHATASE 126 U/L (38-126); ASPARTATE AMINO TRANSFERASE 24 U/L (14-36); BILIRUBIN,DIRECT 0.2 mg/dL (0.0-0.4); BILIRUBIN,TOTAL 0.4 mg/dL (0.2-1.3); BLOOD UREA NITROGEN 5 mg/dL (7-20); CALCIUM 9.1 mg/dL (8.4-10.2); GLUCOSE 90 mg/dL (75-110); TOTAL PROTEIN 5.7 g/dL (6.3-8.2)
[2018-04-27 20:39] LABS: D-DIMER 0.66 ug/mL (0.00-0.50)
[2018-04-27 20:47] LABS: ANION GAP 5 (5-19); CARBON DIOXIDE 24 mmol/L (22-30); CHLORIDE 108 mmol/L (98-107); POTASSIUM 3.9 mmol/L (3.6-5.0); SODIUM 137.1 mmol/L (137-145)
--- NOTE | 2018-04-27 22:18 | RADIOLOGY REPORT (SQ) ---
US PELVIS HISTORY: Vaginal bleeding. COMPARISON: None. TECHNIQUE: Grayscale, color Doppler, and spectral Doppler ultrasound images of the pelvis were obtained. FINDINGS: The cervix is closed and measures 3.1 cm in length. The heart rate is 152 bpm. ROHAN measures 15.3 cm. IMPRESSION: Closed cervix measures 3.1 cm. ROHAN 15.3 cm. heart rate 152 bpm.
[2018-04-27 22:30] LABS: APPEARANCE,URINE CLEAR; BILIRUBIN,URINE NEGATIVE (NEGATIVE); COLOR,URINE STRAW; GLUCOSE, URINE NEGATIVE (NEGATIVE); KETONES,URINE NEGATIVE (NEGATIVE); LEUKOCYTE ESTERASE,URINE NEGATIVE (NEGATIVE); NITRITE,URINE NEGATIVE (NEGATIVE); PROTEIN,URINE NEGATIVE (NEGATIVE); URINE SPECIFIC GRAVITY 1.008; UROBILINOGEN,URINE NEGATIVE mg/dL (<2.0)
[2018-04-27 22:45] LABS: URINE AMPHETAMINES SCREEN NEGATIVE; URINE BARBITURATES SCREEN NEGATIVE; URINE BENZODIAZEPINES SCREEN NEGATIVE; URINE COCAINE SCREEN NEGATIVE; URINE MARIJUANA (THC) SCREEN NEGATIVE; URINE METHADONE SCREEN NEGATIVE; URINE PHENCYCLIDINE SCREEN NEGATIVE
[2018-04-27 23:22] LABS: FETAL RBC COUNT 0
[2018-04-27 23:23] LABS: KB INTERPRETATION NEGATIVE (NEGATIVE)
[2018-04-28] MEDS: RINGERS SOLUTION,LACTATED 1,000 ML IV PRN ×3 (01:11→16:51)
[2018-04-28] MEDS ORDERED: PENICILLIN G-K 5 MILLION UNIT VIAL ONE ×5 (01:34→17:34)
[2018-04-28] MEDS: PENICILLIN G POTASSIUM 2,500,000 UNIT in DEXTROSE 5%-WATER 50 ML IV SCH ×5 (01:49→17:43)
[2018-04-28] MEDS ORDERED: MAGNESIUM SULFATE 20 GM/500 ML RTUINJ IV ONE ×2 (06:39→16:14)
[2018-04-28] MEDS: MAGNESIUM SULFATE 20 GM/500 ML RTUINJ IV PRN ×2 (06:42→16:49)
[2018-04-28 07:05] LABS: CHLAM PCR NOT DETECTED (NOT DETECT); GON PCR NOT DETECTED (NOT DETECT)
[2018-04-28] MEDS ORDERED: ACETAMINOPHEN 325 MG TABLET PO ONE (13:37)
[2018-04-28] MEDS ORDERED: ACETAMINOPHEN 325 MG TABLET ONE ×2 (13:57→20:07)
[2018-04-28] MEDS ORDERED: BETAMET ACET/BETAMET NA INJ 6 MG/1 ML ONE (20:18)
== END 2018-04-28 22:39 | disposition home or self-care (01) ==
LOC: LC 19:04 → LR 20:32
PROVIDERS: ADMIT Student in an Organized Health Care Education/Training Program; ATTEND Student in an Organized Health Care Education/Training Program
DX: O47.03 False labor before 37 completed weeks of gestation, third trimester (principal); O46.8X3 Other antepartum hemorrhage, third trimester; N93.0 Postcoital and contact bleeding; Z3A.30 30 weeks gestation of pregnancy
CPT/HCPCS: 94760; 96372 ×2; 86900; 86901; 36415; 86850; 85025; 85384; 85362; 85610; 85730; 81005; 86592; 80053; 85460; 80307; 85379; 87491; 87591; 76815; G0378 ×3; J3475 ×3; J3490; J2540 ×2; J0702 ×2

== ENCOUNTER 2018-05-23 07:17 | Emergency (ER) | payer MEDICAID ==
[2018-05-23 07:35] VITALS: BP 131/76
--- NOTE | 2018-05-23 10:47 | ER Document Report ---
ED General - General Chief Complaint: Leg Pain Stated Complaint: BACK PAIN Time Seen by Provider: 05/23/18 10:21 Primary Care Provider: MOON HOLLINGSWORTH MD [Primary Care Provider] - Follow up as needed Information source: Patient Notes: Patient is a 1 at 34 weeks by ultrasound who presents today with the onset last night on her overnight shift of some right lower back pain with radi ation down the back of her leg to her right lateral knee. She denies any trauma, weakness of the legs, incontinence, fevers, vaginal bleeding, or dysuria. She denies any and all abdominal cramping or pain. No history of sciatica in the past. [employer] triage was called and the attending stated that the patient should be seen in the emergency department. TRAVEL OUTSIDE OF THE [place] IN LAST 30 DAYS: No - HPI Onset: Other - See above Onset/Duration: Gone - See above Quality of pain: Sharp Pain Level: 0 Associated symptoms: Other - See above Exacerbated by: Denies Relieved by: Denies Similar symptoms previously: No Recently seen / treated by doctor: No - Related Data Allergies/Adverse Reactions: No Known Allergies Allergy (Verified 04/28/18 04:45) Past Medical History - Social History Smoking Status: Unknown if Ever Smoked Family History: Reviewed & Not Pertinent Pulmonary Medical History: Denies: Hx Asthma Neurological Medical History: Reports: Hx Migraine Endocrine Medical History: Denies: Hx Diabetes Mellitus Type 2 Renal/ Medical History: Reports: Hx Kidney Stones. Denies: Hx Peritoneal Dialysis Past Surgical History: Reports: Hx Section, Hx Cholecystectomy - Immunizations Hx Diphtheria, Pertussis, Tetanus Vaccination: Yes Hx Pneumococcal Vaccination: 04/28/00 Review of Systems - Review of Systems Constitutional: denies: Fever Cardiovascular: denies: Chest pain Respiratory: denies: Cough Gastrointestinal: denies: Abdominal pain Genitourinary: denies: Dysuria Musculoskeletal: denies: Joint swelling, Leg swelling -: Yes All other systems reviewed and negative Physical Exam - Vital signs Vitals: Temp Pulse Resp BP Pulse Ox 97.8 F 100 16 131/76 H 98 05/23/18 07:34 05/23/18 07:34 05/23/18 07:34 05/23/18 07:34 05/23/18 07:34 Notes: Reviewed vital signs and nursing note as charted by RN. CONSTITUTIONAL: Alert and oriented and responds appropriately to questions. Well-appearing; well-nourished HEAD: Normocephalic; atraumatic NECK: Supple without meningismus; non-tender; no cervical lymphadenopathy, no masses CARD: Regular rate and rhythm; no murmurs; symmetric distal pulses RESP: Normal chest excursion without splinting or tachypnea; breath sounds clear and equal bilaterally ABD/GI: Normal bowel sounds; gravid consistent with dates; soft, non-tender to palpation BACK: The back appears normal and is non-tender to palpation along the midline lumbar spine. Patient has some right-sided paraspinal muscular tenderness to the lower lumbar region without any obvious swelling or erythema. No CVA tenderness appreciated EXT: Normal ROM in all joints; non-tender to palpation; no edema; 5 out of 5 strength with a negative straight leg test SKIN: No acute lesions noted NEURO: See above PSYCH: The patient's mood and manner are appropriate. Grooming and personal hygiene are appropriate. Course - Re-evaluation Re-evalutation: 05/23/18 10:47 Given the history and physical examination as detailed above, with no incontinence, weakness, foot drop, with some tenderness to the right lower paraspinal muscular region radiating to the right lateral leg, currently pain- free, neurovascularly intact, I do not believe any imaging or laboratory work is necessary at this moment. We have called up to labor and delivery and the patient has an appointment upcoming this week. Patient will be discharged home with strict return precautions. - Vital Signs Vital signs: Temp Pulse Resp BP Pulse Ox 97.8 F 100 16 131/76 H 98 05/23/18 07:34 05/23/18 07:34 05/23/18 07:34 05/23/18 07:34 05/23/18 07:34 Discharge - Discharge Clinical Impression: Low back pain Qualifiers: Chronicity: acute Back pain laterality: right Sciatica presence: with sciatica Sciatica laterality: sciatica of right side Qualified Code(s): M54.41 - Lumbago with sciatica, right side Sciatica Qualifiers: Laterality: right Qualified Code(s): M54.31 - Sciatica, right side Condition: Good Disposition: HOME, SELF-CARE Additional Instructions: Come back immediately for any increased pain, any leg numbness, any leg weakness, any fevers, vaginal bleeding, pain with urination, or any other acute problems. Please follow-up with your [employer] as scheduled. Forms: Return to Work Referrals: MOON HOLLINGSWORTH MD [Primary Care Provider] - Follow up as needed
== END 2018-05-23 11:02 | disposition home or self-care (01) ==
LOC: ER 07:17
DX: O99.89 Other specified diseases and conditions complicating pregnancy, childbirth and the puerperium (principal); M54.41 Lumbago with sciatica, right side; Z3A.34 34 weeks gestation of pregnancy
CPT/HCPCS: 99283

== ENCOUNTER 2018-07-01 23:14 | Inpatient (IN) | payer MEDICAID ==
[2018-07-01] MEDS ORDERED: PENICILLIN G POTASSIUM 5,000,000 UNIT in DEXTROSE 5%-WATER 100 ML IV ONE (23:47)
[2018-07-01] MEDS ORDERED: RINGERS SOLUTION,LACTATED 1,000 ML IV ONE (23:47)
[2018-07-01] MEDS ORDERED: RINGERS SOLUTION,LACTATED 1,000 ML IV PRN (23:47)
[2018-07-01] MEDS ORDERED: OXYTOCIN/NORMAL SALINE 20 UNIT/1,000 ML RTUINJ IV PRN (23:48)
[2018-07-01] MEDS ORDERED: PENICILLIN G-K 5 MILLION UNIT VIAL ONE (23:50)
[2018-07-01 23:51] LABS: APPEARANCE,URINE SLIGHTLY-CLOUDY; BILIRUBIN,URINE NEGATIVE (NEGATIVE); COLOR,URINE YELLOW; GLUCOSE, URINE NEGATIVE (NEGATIVE); KETONES,URINE NEGATIVE (NEGATIVE); LEUKOCYTE ESTERASE,URINE NEGATIVE (NEGATIVE); NITRITE,URINE NEGATIVE (NEGATIVE); PROTEIN,URINE NEGATIVE (NEGATIVE); URINE SPECIFIC GRAVITY 1.011; UROBILINOGEN,URINE NEGATIVE mg/dL (<2.0)
[2018-07-02] MEDS ORDERED: PENICILLIN G-K 5 MILLION UNIT VIAL IV PRN (00:02)
[2018-07-02] MEDS ORDERED: MISOPROSTOL 0.2 MG TABLET ONE (00:05)
[2018-07-02] MEDS ORDERED: LIDOCAINE 1% INJ-PF (10 MG/ML) 30 ML SDV ONE (00:05)
[2018-07-02] MEDS ORDERED: OXYTOCIN/NORMAL SALINE 20 UNIT/1,000 ML RTUINJ ONE ×2 (00:05→13:48)
[2018-07-02] MEDS ORDERED: OXYTOCIN 10 UNIT/ML VIAL ONE (00:05)
[2018-07-02 00:11] LABS: ABSOLUTE EOSINOPHILS # (AUTO) 0.1 10^3/uL (0.0-0.6); ABSOLUTE LYMPHOCYTES (AUTO) 2.7 10^3/uL (0.5-4.7); ABSOLUTE MONOCYTES (AUTO) 0.9 10^3/uL (0.1-1.4); ABSOLUTE NEUT (AUTO) 9.1 10^3/uL (1.7-8.2); BASOPHILS % (AUTO) 0.4 % (0-2); EOSINOPHILS % (AUTO) 0.6 % (0-6); HEMOGLOBIN 11.7 g/dL (12.0-15.5); LYMPHOCYTES % (AUTO) 21.3 % (13-45); MEAN CORPUSCULAR HEMOGLOBIN 30.2 pg (27.0-33.4); MEAN CORPUSCULAR HGB CONC 34.3 g/dL (32.0-36.0); MEAN CORPUSCULAR VOLUME 88 fl (80-97); MONOCYTES % (AUTO) 7.1 % (3-13); PLATELET COUNT 269 10^3/uL (150-450); RED BLOOD COUNT 3.87 10^6/uL (3.72-5.28); RED CELL DISTRIBUTION WIDTH 13.2 % (11.5-14.0); SEGMENTED NEUTROPHILS % (AUTO) 70.6 % (42-78); TOTAL CELLS COUNTED % (AUTO) 100 %; WHITE BLOOD COUNT 12.9 10^3/uL (4.0-10.5)
[2018-07-02 00:17] LABS: URINE AMPHETAMINES SCREEN NEGATIVE; URINE BARBITURATES SCREEN NEGATIVE; URINE BENZODIAZEPINES SCREEN NEGATIVE; URINE COCAINE SCREEN NEGATIVE; URINE MARIJUANA (THC) SCREEN NEGATIVE; URINE METHADONE SCREEN NEGATIVE; URINE PHENCYCLIDINE SCREEN NEGATIVE
[2018-07-02] MEDS ORDERED: EPHEDRINE SULFATE INJ 50 MG/1 ML AMPULE ONE (00:45)
[2018-07-02] MEDS ORDERED: FENTANYL/BUPIVACAINE/NS/PF 300 MCG/150 ML RTUINJ EPI ONE (00:45)
[2018-07-02] MEDS ORDERED: BUPIVACAINE HCL 0.25 % INJ/PF (2.5 MG/1 ML) 30 ML VIAL ONE ×2 (00:45→05:17)
[2018-07-02] MEDS ORDERED: LIDOCAINE 1.5%/EPINEPHRINE INJ 5 ML AMP ONE (00:47)
[2018-07-02] MEDS ORDERED: PENICILLIN G-K 5 MILLION UNIT VIAL ONE ×2 (04:20→08:15)
[2018-07-02] MEDS: PENICILLIN G POTASSIUM 2,500,000 UNIT in DEXTROSE 5%-WATER 50 ML IV SCH (04:26)
[2018-07-02] MEDS ORDERED: FENTANYL CITRATE INJ/PF 100 MCG/2 ML AMPUL ONE ×2 (05:47→13:54)
[2018-07-02] MEDS ORDERED: FAMOTIDINE 20 MG TABLET ONE (09:20)
[2018-07-02] MEDS ORDERED: ONDANSETRON HCL INJ/PF 4 MG/2 ML SDV ONE (09:20)
[2018-07-02] MEDS ORDERED: FAMOTIDINE INJ/PF 20 MG/2 ML SDV IV ONE (09:20)
[2018-07-02] MEDS ORDERED: MEASLES,MUMPS&RUBELLA VACC/PF 0.5 ML VIAL SUBCUT PRN ×2 (13:07→15:30)
[2018-07-02] MEDS ORDERED: ZOLPIDEM TARTRATE 5 MG TABLET PO PRN (13:07)
[2018-07-02] MEDS ORDERED: DIBUCAINE 1% OINTMENT 56 GM TP PRN (13:07)
[2018-07-02] MEDS ORDERED: OXYTOCIN/NORMAL SALINE 20 UNIT/1,000 ML RTUINJ IV PRN (13:07)
[2018-07-02] MEDS ORDERED: DIPH/PERTUSS(ACELL)/TETANUS VAC/PF 0.5 ML SYR (>=10YO) IM PRN ×2 (13:07→15:30)
[2018-07-02] MEDS ORDERED: ACETAMINOPHEN WITH CODEINE #3 TABLET PO PRN (13:07)
[2018-07-02] MEDS ORDERED: BENZOCAINE/MENTHOL AEROSOL SPRAY 56 ML TOP PRN (13:07)
[2018-07-02] MEDS ORDERED: IBUPROFEN 800 MG TABLET ONE (13:10)
[2018-07-02] MEDS: IBUPROFEN 800 MG TABLET PO SCH ×2 (13:15→22:51)
[2018-07-02] MEDS ORDERED: FENTANYL CITRATE INJ/PF 100 MCG/2 ML AMPUL IV ONE (15:06)
[2018-07-02] MEDS ORDERED: AMPICILLIN SOD/SULBACTAM 3 GM VIAL IV ONE (15:39)
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
[2018-07-02] MEDS ORDERED: AMPICILLIN SODIUM/SULBACTAM NA 3 GM in NORMAL SALINE 100 ML IV ONE (16:30)
[2018-07-02] MEDS: DOCUSATE SODIUM 100 MG CAPSULE PO SCH (17:29)
[2018-07-02] MEDS: FERROUS SULFATE 325 MG TABLET PO SCH (17:29)
[2018-07-02] MEDS: ACETAMINOPHEN WITH CODEINE #3 TABLET PO PRN (19:33)
[2018-07-02 20:35] LABS: ABSOLUTE BASOPHILS # (AUTO) 0.1 10^3/uL (0.0-0.2); ABSOLUTE LYMPHOCYTES (AUTO) 2.5 10^3/uL (0.5-4.7); ABSOLUTE MONOCYTES (AUTO) 1.2 10^3/uL (0.1-1.4); ABSOLUTE NEUT (AUTO) 15.3 10^3/uL (1.7-8.2); BASOPHILS % (AUTO) 0.3 % (0-2); EOSINOPHILS % (AUTO) 0.1 % (0-6); HEMATOCRIT 22.2 % (36.0-47.0); LYMPHOCYTES % (AUTO) 13.2 % (13-45); MEAN CORPUSCULAR HEMOGLOBIN 31.1 pg (27.0-33.4); MEAN CORPUSCULAR HGB CONC 34.6 g/dL (32.0-36.0); MEAN CORPUSCULAR VOLUME 90 fl (80-97); MONOCYTES % (AUTO) 6.1 % (3-13); PLATELET COUNT 270 10^3/uL (150-450); RED BLOOD COUNT 2.47 10^6/uL (3.72-5.28); SEGMENTED NEUTROPHILS % (AUTO) 80.3 % (42-78); TOTAL CELLS COUNTED % (AUTO) 100 %
[2018-07-02 20:43] LABS: HEMOGLOBIN 7.7 g/dL (12.0-15.5)
[2018-07-03] MEDS: IBUPROFEN 800 MG TABLET PO SCH ×3 (06:35→22:08)
[2018-07-03 07:18] LABS: HEMATOCRIT 19.3 % (36.0-47.0); MEAN CORPUSCULAR HEMOGLOBIN 31.3 pg (27.0-33.4); MEAN CORPUSCULAR VOLUME 89 fl (80-97); PLATELET COUNT 237 10^3/uL (150-450); RED BLOOD COUNT 2.16 10^6/uL (3.72-5.28); RED CELL DISTRIBUTION WIDTH 13.4 % (11.5-14.0); WHITE BLOOD COUNT 13.5 10^3/uL (4.0-10.5)
[2018-07-03 07:32] LABS: HEMOGLOBIN 6.7 g/dL (12.0-15.5)
[2018-07-03] MEDS: PENICILLIN G POTASSIUM 2,500,000 UNIT in DEXTROSE 5%-WATER 50 ML IV SCH (07:45)
--- NOTE | 2018-07-03 08:16 | Delivery Summary ---
Del Sum A-C Datetime Report Generated by CPN: 07/03/2018 08:16 DELIVERY PERSONNEL DELIVERY PERSONNEL: [id number] Delivery Doctor:: Ronit Beatty CNM Labor and Delivery Nurse:: Jose Earl RNrubbish collection supervisor Nurse:: Willow Chase RN Day Trader/DIRECTOR OF CLINICAL SERVICES: Edi Oliver, CRITICAL CARE NURSE Day Trader/DIRECTOR OF CLINICAL SERVICES: Kayleen Rod, ST MATERNAL INFORMATION Delivery Anesthesia: Epidural Medications After Delivery: Pitocin Drip 20 Units/1000ml NSS Maternal Complications: None Provider Comments: female over intact perineum, OA to KERA, to mothers abd, Cord clamped x2 and cut per FOB. 3VC, placenta intact via cueto. No lacerations. Fundus firmed, bleeding stabilized. LABOR SUMMARY EDC: 07/04/2018 00:00 No. Babies in Womb: 1 Attempted: No Labor Anesthesia: Epidural LABOR INFORMATION Reason for Induction: Not Applicable Onset of Labor: 07/01/2018 23:00 Complete Dilatation: 07/02/2018 08:24 Oxytocin: Augmentation Group B Beta Strep: Positive Antibiotics # of Doses: 3 Antibiotics Time of Last Dose: 834 Name of Antibiotic Given: PCN Steroids Given: Full Course; > 24 Hours before Delivery Reason Steroids Not Administered: Not Applicable MEMBRANES Membranes Rupture Method: Spontaneous Rupture of Membranes: 07/01/2018 23:00 Length of Rupture (hr): 11.23 Amniotic Fluid Color: Clear Amniotic Fluid Amount: Small Amniotic Fluid Odor: Normal STAGES OF LABOR Stage 1 hr: 9 Stage 1 min: 24 Stage 2 hr: 1 Stage 2 min: 50 Stage 3 hr: 0 Stage 3 min: 9 Total Time in Labor hr: 11 Total Time in Labor min: 23 VAGINAL DELIVERY Episiotomy: None Laceration #1: None Laceration Extension #1: N/A Laceration Repair: Not Applicable CSECTION DELIVERY Primary Indication: N/A Secondary Indication: N/A CSection Incidence: N/A Labor: N/A Elective: N/A CSection Incision: N/A BABY A INFORMATION Delivery Date/Time: 07/02/2018 10:14 Method of Delivery: Vaginal Born in Route : No : N/A Forceps: N/A Vacuum Extraction: N/A Shoulder Dystocia : No PRESENTATION/POSITION BABY A Presentation: Cephalic Cephalic Presentation: Vertex Vertex Position: Right Occipital Anterior Breech Presentation: N/A PLACENTA INFORMATION BABY A Placenta Delivery Time : 07/02/2018 10:23 Placenta Method of Delivery: Spontaneous Placenta Status: Delivered SCORES BABY A Heart Rate 1 min: >100 bpm Resp Effort 1 min: Good Cry Reflex Irritability 1 min: Cough or Sneeze or Pulls Away Muscle Tone 1 min: Active Motion Color 1 min: Blue/Pale Resuscitation Effort 1 min: Tactile Stimulation SCORE 1 MIN: 8 Heart Rate 5 min: >100 bpm Resp Effort 5 min: Good Cry Reflex Irritability 5 min: Cough or Sneeze or Pulls Away Muscle Tone 5 min: Active Motion Color 5 min: Body [place], Extremities Blue Resuscitation Effort 5 min: Tactile Stimulation SCORE 5 MIN: 9 INFORMATION BABY A Gestational Age at Delivery: 39.5 Gestational Status: Full Term- 39- 40.6 Weeks Outcome : Liveborn Condition : Stable Sex: Female IDENTIFICATION BABY A Verification Date/Time: 07/02/2018 10:31 ID Band Number: [id number] Mother's Name Verified: Yes Infant RN Verifying : Summer Chase, RN/ Manav Earl, RN WEIGHT/LENGTH BABY A Birthweight (gm): 3350 Infant Weight (lb): 7 Weight (oz): 6 Infant Length (in): 20.00 Length (cm): 50.80 CORD INFORMATION BABY A No. Cord Vessels: 3 Nuchal Cord : N/A Cord Blood Taken: Yes-For Eval (Mom's Blood Type - or O+) Suction: Mouth; Nose ASSESSMENT BABY A Skin to Skin: No SIGNATURES Assignment: Nhan Hager MD Signature: with User ID: [email or web address] : with User ID: [email or web address] : I was personally available for consultation and serving as supervising physician for the MLP. : I was personally available for consultation and serving as supervising physician for the MLP.
--- NOTE | 2018-07-03 09:15 | PDOC PROGRESS REPORT ---
Subjective Progress Note for:: 07/03/18 Subjective:: She states that she feels good; decreasing lochia. Patient denies chest pain, shortness of breath, fever/chills or nausea/vomiting. She is ambulating voiding without difficulty. Reason For Visit: Physical Exam - Physical Exam Vital Signs: Temp Pulse Resp BP Pulse Ox 98.0 F 88 15 108/53 L 100 07/03/18 07:32 07/03/18 07:32 07/03/18 07:32 07/03/18 07:32 07/03/18 07:32 Intake & Output 07/02/18 07/03/18 07/04/18 06:59 06:59 06:59 Intake Total 500 150 Output Total 550 Balance -50 150 Weight 97 kg General appearance: PRESENT: no acute distress Respiratory exam: PRESENT: clear to auscultation james Cardiovascular exam: PRESENT: RRR GI/Abdominal exam: PRESENT: normal bowel sounds - Fundus firm and below umbilicus, soft Extremities exam: ABSENT: calf tenderness, clubbing, full ROM, joint swelling, pedal edema, tenderness, +1 edema, +2 edema, other Result Laboratory Results: 07/03/18 06:42 07/02/18 07/03/18 20:04 06:42 WBC 19.0 H 13.5 H RBC 2.47 L 2.16 L Hgb 7.7 L D 6.7 L Hct 22.2 L 19.3 L MCV 90 89 MCH 31.1 31.3 MCHC 34.6 35.0 RDW 13.0 13.4 Plt Count 270 237 Seg Neutrophils % 80.3 H Lymphocytes % 13.2 Monocytes % 6.1 Eosinophils % 0.1 Basophils % 0.3 Absolute Neutrophils 15.3 H Absolute Lymphocytes 2.5 Absolute Monocytes 1.2 Absolute Eosinophils 0.0 Absolute Basophils 0.1 Assessment & Plan - Diagnosis (1) Carrier of group B Streptococcus Is this a current diagnosis for this admission?: Yes (2) PROM (premature rupture of membranes) Is this a current diagnosis for this admission?: Yes (3) hemorrhage Is this a current diagnosis for this admission?: Yes (4) Vaginal delivery Is this a current diagnosis for this admission?: Yes (5) Anemia, Is this a current diagnosis for this admission?: Yes - Time Time Spent with patient: 15-24 minutes Within: within 48 hours - Inpatient Certification Based on my medical assessment, after consideration of the patient's comorbidities, presenting symptoms, or acuity I expect that the services needed warrant INPATIENT care.: Yes I certify that my determination is in accordance with my understanding of Medicare's requirements for reasonable and necessary INPATIENT services [42 CFR 412.3e].: Yes - Plan Summary Plan Summary: 1. Continue care
[2018-07-03] MEDS: SENNOSIDES/DOCUSATE 8.6-50 MG 1 EACH TABLET PO SCH (09:35)
[2018-07-03] MEDS: PRENATAL VITAMIN W DHA CAPSULE PO SCH (09:35)
[2018-07-03] MEDS: DOCUSATE SODIUM 100 MG CAPSULE PO SCH ×2 (09:35→19:38)
[2018-07-03] MEDS: FERROUS SULFATE 325 MG TABLET PO SCH ×2 (09:35→19:38)
[2018-07-03] MEDS: ACETAMINOPHEN WITH CODEINE #3 TABLET PO PRN ×2 (11:55→19:41)
[2018-07-04] MEDS: IBUPROFEN 800 MG TABLET PO SCH (08:03)
[2018-07-04 08:39] VITALS: BP 127/77
--- NOTE | 2018-07-04 09:27 | PDOC PROGRESS REPORT ---
Subjective-OB Progress Note for:: 07/04/18 Subjective: doing well, no c/o, walking, eating well, tolerating low H&H Physical Exam (OB) Vital Signs: Temp Pulse Resp BP Pulse Ox 97.8 F 86 15 127/77 H 100 07/04/18 07:27 07/04/18 07:27 07/04/18 07:27 07/04/18 07:27 07/04/18 07:27 Intake & Output 07/03/18 07/04/18 07/05/18 06:59 06:59 07:59 Intake Total 500 150 Output Total 550 Balance -50 150 Weight 97 kg - PIH/Pre-Eclampsia DTR's: 2 + Clonus: Negative Headache: Absent Epigastric Pain: No Visual Changes: No - Lochia Lochia Amount: Scant < 10 ml Lochia Color: Rubra/Red - Abdomen Description: Soft, Round Hernia Present: No Fundal Description: Firm, Midline Fundal Height: u/u - u/2 Objective-Diagnostic Laboratory: 07/03/18 06:42 Assessment and Plan(PN) - Assessment and Plan (1) Anemia, Is this a current diagnosis for this admission?: Yes (2) Carrier of group B Streptococcus Is this a current diagnosis for this admission?: Yes (3) PROM (premature rupture of membranes) Qualifiers: PROM onset of labor timing: onset of labor within 24 hours of rupture Is this a current diagnosis for this admission?: Yes (4) hemorrhage Qualifiers: hemorrhage type: unspecified Qualified Code(s): O72.1 - Other immediate hemorrhage Is this a current diagnosis for this admission?: Yes (5) Vaginal delivery Is this a current diagnosis for this admission?: Yes - Time Spent with Patient Time with patient: Less than 15 minutes - Disposition Anticipated Discharge: Home Within: within 24 hours
--- NOTE | 2018-07-04 09:28 | PDOC DISCHARGE SUMMARY ---
Addendum entered and electronically signed by TEDDY DUBON CNM 07/06/18 21:29: Final Diagnosis Discharge Date: 07/04/18 - Final Diagnosis (1) Anemia, Is this a current diagnosis for this admission?: Yes (2) Carrier of group B Streptococcus Is this a current diagnosis for this admission?: Yes (3) hemorrhage Is this a current diagnosis for this admission?: Yes (4) PROM (premature rupture of membranes) Is this a current diagnosis for this admission?: Yes (5) Vaginal delivery Is this a current diagnosis for this admission?: Yes Original Note: Final Diagnosis Discharge Date: 07/04/18 Discharge Data - Discharge Medication Prescriptions: Ferrous Sulfate [Feosol 325 mg Tablet] 325 mg PO BID #30 tablet Home Medications: Pnv,Calcium 72/Iron,Carb/Folic [ Plus Iron Tablet] 1 tab PO DAILY 07/02/18 Ferrous Sulfate [Feosol 325 mg Tablet] 325 mg PO BID #30 tablet 07/03/18 Gestational Age: 39.5 Reason(s) for Admission: PROM, Group B Strep Positive Admission Note: augmentation Procedures: NST, Ultrasound Intrapartum Procedure(s): Spontaneous Vaginal Delivery - [facility] Data Baby 1 Female at 1 minute: 8 at 5 minutes: 9 Home with Mother: Yes Complications: No - Diagnosis Test Laboratory: Temp Pulse Resp BP Pulse Ox 98.0 F 88 15 108/53 L 100 07/03/18 07:32 07/03/18 07:32 07/03/18 07:32 07/03/18 07:32 07/03/18 07:32 07/01/18 07/02/18 07/02/18 23:24 00:02 20:04 RBC 3.87 2.47 L Hgb 11.7 L 7.7 L D Hct 34.0 L 22.2 L Urine Opiates Screen NEGATIVE 07/03/18 06:42 RBC 2.16 L Hgb 6.7 L Hct 19.3 L Urine Opiates Screen - Discharge information/Instructions Discharge Activity: Activity As Tolerated, No Lifting Over 10 Pounds, No Lifting/Push/Pulling, Pelvic Rest Discharge Diet: As Tolerated, Regular Disposition: HOME, SELF-CARE Follow up with: [facility] in: 2, Weeks
[2018-07-04] MEDS: SENNOSIDES/DOCUSATE 8.6-50 MG 1 EACH TABLET PO SCH (11:18)
[2018-07-04] MEDS: ACETAMINOPHEN WITH CODEINE #3 TABLET PO PRN (11:19)
[2018-07-04] MEDS: PRENATAL VITAMIN W DHA CAPSULE PO SCH (11:19)
[2018-07-04] MEDS: DOCUSATE SODIUM 100 MG CAPSULE PO SCH (11:19)
[2018-07-04] MEDS: FERROUS SULFATE 325 MG TABLET PO SCH (11:19)
--- NOTE | 2018-07-06 02:39 | Delivery Summary ---
Del Sum A-C Datetime Report Generated by CPN: 07/06/2018 02:39 DELIVERY PERSONNEL DELIVERY PERSONNEL: [id number] Delivery Doctor:: Ronit Beatty CNM Labor and Delivery Nurse:: Jose Earl RNbottom crane operator Nurse:: Willow Chase RN Analytics Architect/RADIAL ARM SAW OPERATOR: Edi Oliver, OTORHINOLARYNGOLOGIST Analytics Architect/RADIAL ARM SAW OPERATOR: Kayleen Rod, ST MATERNAL INFORMATION Delivery Anesthesia: Epidural Medications After Delivery: Pitocin Drip 20 Units/1000ml NSS Maternal Complications: None Provider Comments: female over intact perineum, OA to KERA, to mothers abd, Cord clamped x2 and cut per FOB. 3VC, placenta intact via cueto. No lacerations. Fundus firmed, bleeding stabilized. LABOR SUMMARY EDC: 07/04/2018 00:00 No. Babies in Womb: 1 Attempted: No Labor Anesthesia: Epidural LABOR INFORMATION Reason for Induction: Not Applicable Onset of Labor: 07/01/2018 23:00 Complete Dilatation: 07/02/2018 08:24 Oxytocin: Augmentation Group B Beta Strep: Positive Antibiotics # of Doses: 3 Antibiotics Time of Last Dose: 834 Name of Antibiotic Given: PCN Steroids Given: Full Course; > 24 Hours before Delivery Reason Steroids Not Administered: Not Applicable MEMBRANES Membranes Rupture Method: Spontaneous Rupture of Membranes: 07/01/2018 23:00 Length of Rupture (hr): 11.23 Amniotic Fluid Color: Clear Amniotic Fluid Amount: Small Amniotic Fluid Odor: Normal STAGES OF LABOR Stage 1 hr: 9 Stage 1 min: 24 Stage 2 hr: 1 Stage 2 min: 50 Stage 3 hr: 0 Stage 3 min: 9 Total Time in Labor hr: 11 Total Time in Labor min: 23 VAGINAL DELIVERY Episiotomy: None Laceration #1: None Laceration Extension #1: N/A Laceration Repair: Not Applicable CSECTION DELIVERY Primary Indication: N/A Secondary Indication: N/A CSection Incidence: N/A Labor: N/A Elective: N/A CSection Incision: N/A BABY A INFORMATION Delivery Date/Time: 07/02/2018 10:14 Method of Delivery: Vaginal Born in Route : No : N/A Forceps: N/A Vacuum Extraction: N/A Shoulder Dystocia : No PRESENTATION/POSITION BABY A Presentation: Cephalic Cephalic Presentation: Vertex Vertex Position: Right Occipital Anterior Breech Presentation: N/A PLACENTA INFORMATION BABY A Placenta Delivery Time : 07/02/2018 10:23 Placenta Method of Delivery: Spontaneous Placenta Status: Delivered SCORES BABY A Heart Rate 1 min: >100 bpm Resp Effort 1 min: Good Cry Reflex Irritability 1 min: Cough or Sneeze or Pulls Away Muscle Tone 1 min: Active Motion Color 1 min: Blue/Pale Resuscitation Effort 1 min: Tactile Stimulation SCORE 1 MIN: 8 Heart Rate 5 min: >100 bpm Resp Effort 5 min: Good Cry Reflex Irritability 5 min: Cough or Sneeze or Pulls Away Muscle Tone 5 min: Active Motion Color 5 min: Body [place], Extremities Blue Resuscitation Effort 5 min: Tactile Stimulation SCORE 5 MIN: 9 INFORMATION BABY A Gestational Age at Delivery: 39.5 Gestational Status: Full Term- 39- 40.6 Weeks Outcome : Liveborn Condition : Stable Sex: Female IDENTIFICATION BABY A Verification Date/Time: 07/02/2018 10:31 ID Band Number: [id number] Mother's Name Verified: Yes Infant RN Verifying : Summer Chase, RN/ Manav Earl, RN WEIGHT/LENGTH BABY A Birthweight (gm): 3350 Infant Weight (lb): 7 Weight (oz): 6 Infant Length (in): 20.00 Length (cm): 50.80 CORD INFORMATION BABY A No. Cord Vessels: 3 Nuchal Cord : N/A Cord Blood Taken: Yes-For Eval (Mom's Blood Type - or O+) Suction: Mouth; Nose ASSESSMENT BABY A Skin to Skin: No SIGNATURES Assignment: Nhan Hager MD Signature: with User ID: [email or web address] : with User ID: [email or web address] : I was personally available for consultation and serving as supervising physician for the P.
== END 2018-07-04 13:01 | disposition home or self-care (01) | DRG 806 ==
LOC: LC 23:14 → LR 23:54 → 2S 07-02 16:13
PROVIDERS: ADMIT Student in an Organized Health Care Education/Training Program; ATTEND Obstetrics & Gynecology Gynecology
PROC: 10E0XZZ Delivery of Products of Conception, External Approach (ICD-10-PCS; principal; 2018-07-02)
DX: O24.420 Gestational diabetes mellitus in childbirth, diet controlled (principal); O72.1 Other immediate postpartum hemorrhage; Z37.0 Single live birth; O99.824 Streptococcus B carrier state complicating childbirth; O42.02 Full-term premature rupture of membranes, onset of labor within 24 hours of rupture; O67.8 Other intrapartum hemorrhage; O99.214 Obesity complicating childbirth; Z3A.39 39 weeks gestation of pregnancy
CPT/HCPCS: 36415; 80307; 81001; 84112; 85025; 85027; 86592; 86850; 86900; 86901; 94760; J0295; J2405; J2540; J2590; J3010; J3490; S0028

== ENCOUNTER 2018-11-05 11:49 | Emergency (ER) | payer SELFPAY ==
[2018-11-05 12:08] VITALS: BP 126/63
[2018-11-05] MEDS ORDERED: IBUPROFEN 600 MG TABLET PO ONE (12:48)
[2018-11-05] MEDS: LIDOCAINE 1% INJ-PF (10 MG/ML) 30 ML SDV INJ ONE ×2 (12:55→13:04)
--- NOTE | 2018-11-05 13:03 | ER Document Report ---
HPI - HPI Time Seen by Provider: 11/05/18 12:36 Pain Level: 5 Context: Patient is a 32-year-old female who presents to the emergency department with chief complaint of left thumb pain and swelling. Patient states about 1 week ago she pulled a hangnail. 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 Patient states that the pain and swelling has continuously gotten worse. Patient states she is able to bend her left thumb without difficulty. Patient states that the swelling is primarily around the right lateral thumb. Patient states she is concerned that she was exposed to bacteria as she did not have it covered while at work. Has not been seen for this and has not taken any medication for pain. States that her child accidentally hit her thumb earlier and a small amount of pus came out. - CONSTITUTIONAL Constitutional: DENIES: Fever, Chills - EENT EENT: DENIES: Sore Throat, Ear Pain, Eye problems - NEURO Neurology: DENIES: Headache, Weakness, Vision blurred, Dizzinesss / Vertigo - CARDIOVASCULAR Cardiovascular: DENIES: Chest pain - RESPIRATORY Respiratory: DENIES: Trouble Breathing, Coughing - GASTROINTESTINAL Gastrointestinal: DENIES: Abdominal Pain, Black / Bloody Stools - URINARY Urinary: DENIES: Dysuria, Urgency, Frequency - REPRODUCTIVE Reproductive: DENIES: : - MUSCULOSKELETAL Musculoskeletal: REPORTS: Extremity pain Past Medical History - General Information source: Patient - Social History Smoking Status: Unknown if Ever Smoked Chew tobacco use (# tins/day): No Frequency of alcohol use: None Drug Abuse: None Family History: Reviewed & Not Pertinent Patient has suicidal ideation: No Patient has homicidal ideation: No - Past Medical History Cardiac Medical History: Reports: None Pulmonary Medical History: Reports: None Denies: Hx Asthma EENT Medical History: Reports: None Neurological Medical History: Reports: Hx Migraine Endocrine Medical History: Reports: None. Denies: Hx Diabetes Mellitus Type 2 Renal/ Medical History: Reports: Hx Kidney Stones. Denies: Hx Peritoneal Dialysis Malignancy Medical History: Reports: None GI Medical History: Reports: None Musculoskeletal Medical History: Reports None Skin Medical History: Reports None Psychiatric Medical History: Reports: None Traumatic Medical History: Reports: None Infectious Medical History: Reports: None Past Surgical History: Reports: Hx Section, Hx Cholecystectomy - Immunizations Hx Diphtheria, Pertussis, Tetanus Vaccination: Yes Hx Pneumococcal Vaccination: 04/28/00 Vertical Provider Document - CONSTITUTIONAL Notes: GENERAL: Well-appearing, well-nourished and in no acute distress. HEAD: Atraumatic, normocephalic. EYES: Pupils equal round and reactive to light, extraocular movements intact, sclera anicteric, conjunctiva are normal. ENT: TMs normal, nares patent, oropharynx clear without exudates. Moist mucous membranes. NECK: Normal range of motion, supple without lymphadenopathy or JVD. LUNGS: Breath sounds clear to auscultation bilaterally and equal. No wheezes rales or rhonchi. HEART: Regular rate and rhythm without murmurs, rubs or gallops. ABDOMEN: Soft, nontender, normoactive bowel sounds. No guarding, no rebound. No masses appreciated. BACK: No cervical, thoracic, lumbar midline tenderness. No saddle anesthesia, normal distal neurovascular exam. GENITOURINARY: Deferred. EXTREMITIES: Normal range of motion, patient able to flex and extend in left thumb, AROM at the DIP and PIP joint. Swelling and erythema noted to the left thumb on the right lateral side near the base of the fingernail. This appears to be consistent with a paronychia with a surrounding abscess. No active drainage. Abscess is extremely tender to touch and firm. NEUROLOGICAL: Cranial nerves II through XII grossly intact. Normal speech, normal gait. PSYCH: Normal mood, normal affect. SKIN: Warm, Dry, normal turgor, no rashes or lesions noted. - INFECTION CONTROL TRAVEL OUTSIDE OF THE [place] IN LAST 30 DAYS: No Course - Re-evaluation Re-evalutation: 11/05/18 13:36 XRAY did show soft tissue swelling without fracture dislocation. There is no evidence in the x-ray for osteomyelitis. I did make patient aware of the x-ray findings. Will soak left thumb in warm water and Betadine for 10 minutes prior to discharge. - Vital Signs Vital signs: Temp Pulse Resp BP Pulse Ox 98.1 F 57 L 18 126/63 H 98 11/05/18 12:07 11/05/18 12:07 11/05/18 12:07 11/05/18 12:07 11/05/18 12:07 Procedures - Incision and Drainage Left Thumb Time completed: 13:30 Type: Simple Anesthetic type: 1% Lidocaine mL's of anesthetic: 2 Blade size: 11 I&D procedure: Betadine prep applied, Shurclens applied Incision Method: Incision made by scalpel Notes: 11/05/18 13:38 Small incision was made at the base of the left thumb fingernail near the paronychia. There was a small amount of purulent and bloody drainage. Discharge - Discharge Clinical Impression: Paronychia Condition: Stable Disposition: HOME, SELF-CARE Additional Instructions: You were seen in the emergency department for infection to between the nail and the surrounding skin of the left thumb. The x-ray was negative for an acute fracture, dislocation or infection in the bone. The x-ray did show soft tissue swelling which is consistent with paronychia and abscess. This is called a paronychia. The infection is treated by releasing pus which I did obtain after making a small incision with a scalpel. Continue to use hot soaks 3-[address] will place you on an antibiotic. Please keep this wound clean and covered especially while at work. Please return to the emergency department for inability to move the left thumb, fever, chills or any other concerning signs or symptoms. Paronychia You have an infection between the nail and the surrounding skin, called a paronychia. The germs infect the area after a minor skin injury, such as a hangnail. This infection is treated by releasing the pus. This is usually done by the skin from the nail. If the infection has spread underneath the nail, partial removal of the nail may be necessary. Hot-soak the area three or four times daily. Antibiotics are often given, but are not always necessary. Healing takes about a week. If pain or swelling becomes severe or if you develop fever or chills, call the doctor or return for re-examination. Prescriptions: Cephalexin Monohydrate [Keflex 500 mg Capsule] 500 mg PO Q6H 7 Days capsule
--- NOTE | 2018-11-05 13:11 | RADIOLOGY REPORT (SQ) ---
EXAM DESCRIPTION: FINGER LEFT COMPLETED DATE/TIME: 11/05/2018 1:01 pm REASON FOR STUDY: left thumb swelling COMPARISON: None. NUMBER OF VIEWS: Three views. TECHNIQUE: AP, lateral, and oblique images acquired of the left thumb. LIMITATIONS: None. FINDINGS: MINERALIZATION: Normal. BONES: No acute fracture or dislocation. No worrisome bone lesions. SOFT TISSUES: Soft tissue swelling about the left thumb. No radiopaque foreign body. OTHER: No other significant finding. IMPRESSION: No fracture or dislocation of the left thumb. Soft tissue swelling. No radiopaque fore ign body. No radiographic erosion or sclerosis to suggest osteomyelitis. MRI is more sensitive for bone marrow edema and osteomyelitis if suspected. TECHNICAL DOCUMENTATION: JOB ID: [id number] [employer]- All Rights Reserved Reading location - IP/workstation name: [email or web address]
[2018-11-05] MEDS ORDERED: CEPHALEXIN 500 MG CAPSULE PO ONE (13:44)
== END 2018-11-05 14:09 | disposition home or self-care (01) ==
LOC: ER 11:49
DX: L03.012 Cellulitis of left finger (principal)
CPT/HCPCS: 99283; J3490

== ENCOUNTER 2019-02-06 16:35 | Emergency (ER) | payer SELFPAY ==
[2019-02-06 16:40] VITALS: BP 145/83
[2019-02-06] MEDS ORDERED: PENICILLIN V POTASSIUM 500 MG TABLET PO ONE (16:57)
[2019-02-06] MEDS ORDERED: HYDROCODONE/ACETAMINOPHEN 5-325 MG (6 TAB/ER DISP) PO PRN (16:57)
--- NOTE | 2019-02-06 16:59 | ER Document Report ---
HPI - HPI Patient complains to provider of: Toothache Time Seen by Provider: 02/06/19 16:50 Onset/Duration: Persistent Quality of pain: Achy Pain Level: 5 Context: Patient states that she cracked her tooth 2 days ago. Patient complains of nausea and dental pain. No fever. No facial swelling. Associated Symptoms: Other - Dental pain Exacerbated by: Denies Relieved by: Denies Similar symptoms previously: No Recently seen / treated by doctor: No - ROS ROS below otherwise negative: Yes Systems Reviewed and Negative: Yes All other systems reviewed and negative - CONSTITUTIONAL Constitutional: DENIES: Fever, Chills - EENT EENT: DENIES: Sore Throat, Ear Pain Notes: Dental pain - GASTROINTESTINAL Gastrointestinal: REPORTS: Nausea. DENIES: Patient vomiting - REPRODUCTIVE Reproductive: DENIES: : - MUSCULOSKELETAL Musculoskeletal: DENIES: Neck Pain - DERM Skin Color: Normal Skin Problems: None Past Medical History - General Information source: Patient - Social History Smoking Status: Never Smoker Frequency of alcohol use: None Drug Abuse: None Occupation: None Lives with: Family Family History: Reviewed & Not Pertinent Pulmonary Medical History: Denies: Hx Asthma Neurological Medical History: Reports: Hx Migraine Endocrine Medical History: Denies: Hx Diabetes Mellitus Type 2 Renal/ Medical History: Reports: Hx Kidney Stones. Denies: Hx Peritoneal Dialysis Past Surgical History: Reports: Hx Section, Hx Cholecystectomy - Immunizations Hx Diphtheria, Pertussis, Tetanus Vaccination: Yes Hx Pneumococcal Vaccination: 04/28/00 Vertical Provider Document - CONSTITUTIONAL Agree With Documented VS: Yes Exam Limitations: No Limitations General Appearance: WD/WN, No Apparent Distress - INFECTION CONTROL TRAVEL OUTSIDE OF THE [place] IN LAST 30 DAYS: No - HEENT HEENT: Atraumatic, Normocephalic Mouth Diagram: 1 - Dental fracture, no gingival abscess, no trismus, no potential airway compromise - NECK Neck: Normal Inspection, Supple - RESPIRATORY Respiratory: Breath Sounds Normal, No Respiratory Distress - CARDIOVASCULAR Cardiovascular: Regular Rate, Regular Rhythm - MUSCULOSKELETAL/EXTREMETIES Musculoskeletal/Extremeties: MAEW - NEURO Level of Consciousness: Awake, Alert, Appropriate Motor/Sensory: No Motor Deficit - DERM Integumentary: Warm, Dry, No Rash Course - Vital Signs Vital signs: Temp Pulse Resp BP Pulse Ox 98.1 F 79 16 145/83 H 97 02/06/19 16:38 02/06/19 16:38 02/06/19 16:38 02/06/19 16:38 02/06/19 16:38 Discharge - Discharge Clinical Impression: Toothache Condition: Stable Disposition: HOME, SELF-CARE Instructions: Oral Narcotic Medication ([facility]), Penicillin V K ([facility]), Toothache ([facility]) Additional Instructions: Return immediately for any new or worsening symptoms Followup with your primary care provider, call tomorrow to make a followup appointment Follow-up dental care provider for further evaluation, call Friday for an appointment Prescriptions: Naproxen [Naprosyn 250 Nmg Tablet] 1 tab PO BID #14 tablet Penicillin V Potassium [Penicillin Vk 500 mg Tablet] 500 mg PO BID #20 tablet Referrals: [facility] [Provider Group] - Follow up as needed
== END 2019-02-06 17:17 | disposition home or self-care (01) ==
LOC: ER 16:35
DX: K08.89 Other specified disorders of teeth and supporting structures (principal); R11.0 Nausea; E11.9 Type 2 diabetes mellitus without complications
CPT/HCPCS: 99282

== ENCOUNTER 2019-07-14 10:04 | Emergency (ER) | payer MEDICAID, OTHER ==
[2019-07-14 10:09] VITALS: BP 144/91
[2019-07-14] MEDS ORDERED: TETRACAINE HCL 0.5% OPH SOLN 4 ML OS ONE (10:18)
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
== END 2019-07-14 12:26 | disposition left against medical advice (07) ==
LOC: ER 10:04
DX: S05.92XA Unspecified injury of left eye and orbit, initial encounter (principal); W50.0XXA Accidental hit or strike by another person, initial encounter; Z53.20 Procedure and treatment not carried out because of patient's decision for unspecified reasons
CPT/HCPCS: 99281; J3490

== ENCOUNTER 2019-07-15 07:27 | Emergency (ER) | payer OTHER ==
[2019-07-15 07:37] VITALS: BP 133/73
[2019-07-15] MEDS ORDERED: TETRACAINE HCL 0.5% OPH SOLN 4 ML OS ONE (08:30)
[2019-07-15] MEDS ORDERED: POLYMYXIN B SULFATE/TMP OPH SOLN (10 ML/ER DISP) OS ONE (09:05)
--- NOTE | 2019-07-15 09:08 | ER Document Report ---
HPI - HPI Time Seen by Provider: 07/15/19 08:20 Pain Level: 5 Context: Patient is a 33-year-old female who presents the emergency department with a chief complaint of left eye pain. Patient states that she feels like there is "glass in her eye." She was advised by her infant daughter yesterday. She was seen here in the emergency department and tetracaine was placed and then she ended up eloping. Patient states that she tried using saline drops, but states the pain worse. - CONSTITUTIONAL Constitutional: DENIES: Fever, Chills - EENT EENT: REPORTS: Eye problems - REPRODUCTIVE LMP: 07/03 Reproductive: DENIES: : Past Medical History - Social History Smoking Status: Never Smoker Chew tobacco use (# tins/day): No Frequency of alcohol use: None Drug Abuse: None Family History: Reviewed & Not Pertinent Patient has suicidal ideation: No Patient has homicidal ideation: No Pulmonary Medical History: Denies: Hx Asthma Neurological Medical History: Reports: Hx Migraine Endocrine Medical History: Denies: Hx Diabetes Mellitus Type 2 Renal/ Medical History: Reports: Hx Kidney Stones. Denies: Hx Peritoneal Dialysis Past Surgical History: Reports: Hx Section, Hx Cholecystectomy - Immunizations Hx Diphtheria, Pertussis, Tetanus Vaccination: Yes Hx Pneumococcal Vaccination: 04/28/00 Vertical Provider Document - CONSTITUTIONAL Agree With Documented VS: Yes Exam Limitations: No Limitations General Appearance: No Apparent Distress - INFECTION CONTROL TRAVEL OUTSIDE OF THE [place] IN LAST 30 DAYS: No - HEENT HEENT: Atraumatic, Conjuctival Injection - Left, Normocephalic, PERRLA - RESPIRATORY Respiratory: No Respiratory Distress - CARDIOVASCULAR Cardiovascular: Regular Rate, Regular Rhythm Pulses: Normal: Radial - MUSCULOSKELETAL/EXTREMETIES Musculoskeletal/Extremeties: FROM - NEURO Level of Consciousness: Awake, Alert, Appropriate Motor/Sensory: No Motor Deficit, No Sensory Deficit - DERM Integumentary: Warm, Dry, No Rash Course - Re-evaluation Re-evalutation: Eye exam done with the De La Cruz lamp and slit lamp. There is nothing seen in the patient's eye, but the patient has a large corneal abrasion noted to her left eye in front of the pupil. Patient will be started on eyedrops and Polytrim eyedrops. Advised patient to follow-up with ophthalmology if she continues to have pain. No globe rupture noted. Negative Angel sign. Follow-up precautions were given. Verbal discharge instructions were given to the patient. They verbalized understanding. They are stable for discharge. - Vital Signs Vital signs: Temp Pulse Resp BP Pulse Ox 98.3 F 81 18 133/73 H 98 07/15/19 07:36 07/15/19 07:36 07/15/19 07:36 07/15/19 07:36 07/15/19 07:36 Procedures - Eye Procedure Left Acular drops administered: Left Fluorescein applied: Left Antibiotic Oinment/Drps Admin: Left eye Slit lamp used: Yes Eyes picture: 1 - corneal abrasian Discharge - Discharge Clinical Impression: Eye injury Qualifiers: Encounter type: subsequent encounter Laterality: left Qualified Code(s): S05.92XD - Unspecified injury of left eye and orbit, subsequent encounter Corneal abrasion Qualifiers: Encounter type: subsequent encounter Laterality: left Qualified Code(s): S05.02XD - Injury of conjunctiva and corneal abrasion without foreign body, left eye, subsequent encounter Condition: Stable Disposition: HOME, SELF-CARE Instructions: Corneal Abrasion ([facility]) Additional Instructions: You were seen today in the emergency department for left eye pain. You have a corneal abrasion. Please place 1 drop to your left eye 4 times a day. You are also being prescribed Acular eyedrops. Use as directed. If you continue to have pain in the next 3 days, please follow-up with the business information consultant below. Prescriptions: Ketorolac Tromethamine [Acular Ls] 1 drop OS TIDP PRN #5 ml PRN Reason: Forms: Return to Work Referrals: CM DOTSON MD [ACTIVE STAFF] - Follow up as needed
== END 2019-07-15 09:18 | disposition home or self-care (01) ==
LOC: ER 07:27
DX: S05.92XD Unspecified injury of left eye and orbit, subsequent encounter (principal); S05.02XD Injury of conjunctiva and corneal abrasion without foreign body, left eye, subsequent encounter; H57.12 Ocular pain, left eye; X58.XXXD Exposure to other specified factors, subsequent encounter; E11.9 Type 2 diabetes mellitus without complications
CPT/HCPCS: 99283; J3490 ×2

== ENCOUNTER 2019-09-09 07:19 | Emergency (ER) | payer OTHER ==
[2019-09-09] MEDS ORDERED: HOMATROPINE HBR 5% OPH SOLN 5 ML OS ONE (08:41)
[2019-09-09] MEDS ORDERED: TETRACAINE HCL 0.5% OPH SOLN 4 ML OS ONE (08:41)
[2019-09-09] MEDS ORDERED: KETOROLAC TROMETHAMINE 0.45% 4 DROP/0.4 ML DROPERETTE OS ONE (08:41)
[2019-09-09] MEDS ORDERED: BESIFLOXACIN HCL 0.6% OPH SUSP 5 ML BOTTLE OS ONE (09:05)
[2019-09-09 09:24] VITALS: BP 147/93
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
== END 2019-09-09 09:23 | disposition home or self-care (01) ==
LOC: ER 07:19
DX: S05.02XA Injury of conjunctiva and corneal abrasion without foreign body, left eye, initial encounter (principal); W50.0XXA Accidental hit or strike by another person, initial encounter
CPT/HCPCS: 99283; J3490 ×2

== ENCOUNTER 2019-10-05 17:39 | Emergency (ER) | payer OTHER ==
[2019-10-05 17:44] VITALS: BP 133/75
== END 2019-10-05 17:45 | disposition left against medical advice (07) ==
LOC: ER 17:39
DX: Z53.21 Procedure and treatment not carried out due to patient leaving prior to being seen by health care provider (principal)

== ENCOUNTER 2019-10-06 01:32 | Emergency (ER) | payer OTHER ==
[2019-10-06] MEDS ORDERED: PENICILLIN V POTASSIUM 500 MG TABLET PO ONE (01:49)
--- NOTE | 2019-10-06 01:49 | ER Document Report ---
HPI - HPI Time Seen by Provider: 10/06/19 01:43 Pain Level: 5 Context: Patient is a 33-year-old female who presents the emergency department with a chief complaint of left upper tooth pain. Patient states her pain started about 2 to 3 days ago. Patient states that she cannot get into the [facility] until October. She has not taken any antibiotics. Denies any past medical history. - CONSTITUTIONAL Constitutional: DENIES: Fever, Chills - EENT EENT: DENIES: Sore Throat Notes: left upper tooth pain - CARDIOVASCULAR Cardiovascular: DENIES: Chest pain - RESPIRATORY Respiratory: DENIES: Coughing - GASTROINTESTINAL Gastrointestinal: DENIES: Nausea, Patient vomiting - REPRODUCTIVE Reproductive: DENIES: : - MUSCULOSKELETAL Musculoskeletal: DENIES: Extremity pain - DERM Skin Color: Normal Skin Problems: None Past Medical History - Social History Smoking Status: Never Smoker Frequency of alcohol use: None Drug Abuse: None Family History: Reviewed & Not Pertinent Patient has homicidal ideation: No Pulmonary Medical History: Denies: Hx Asthma Neurological Medical History: Reports: Hx Migraine Endocrine Medical History: Denies: Hx Diabetes Mellitus Type 2 Renal/ Medical History: Reports: Hx Kidney Stones. Denies: Hx Peritoneal Dialysis Past Surgical History: Reports: Hx Section, Hx Cholecystectomy - Immunizations Hx Diphtheria, Pertussis, Tetanus Vaccination: Yes Hx Pneumococcal Vaccination: 04/28/00 Vertical Provider Document - CONSTITUTIONAL Agree With Documented VS: Yes Exam Limitations: No Limitations General Appearance: No Apparent Distress - INFECTION CONTROL TRAVEL OUTSIDE OF THE [place] IN LAST 30 DAYS: No - HEENT Mouth Diagram: 1 - tooth decay - NECK Neck: Normal Inspection, Supple. negative: Lymphadenopathy-Left, Lymphadenopathy-Right - RESPIRATORY Respiratory: Breath Sounds Normal, No Respiratory Distress - CARDIOVASCULAR Cardiovascular: Regular Rate, Regular Rhythm - MUSCULOSKELETAL/EXTREMETIES Musculoskeletal/Extremeties: FROM - NEURO Level of Consciousness: Awake, Alert, Appropriate Motor/Sensory: No Motor Deficit, No Sensory Deficit - DERM Integumentary: Warm, Dry, No Rash Course - Re-evaluation Re-evalutation: 10/06/19 01:50 Patient's physical exam and history is most consistent with a infected tooth. Patient is able to swallow, no facial swelling noted, airway is patent, vital signs are normal. I do not suspect Isidro's angina, peritonsilar abscess, or airway obstruction. The patient will be started on oral antibiotics. I have given the patient education on their antibiotics. Patient was given instructions to follow-up with a dentist this week. Return precautions were given. Verbal discharge instructions were given. Patient verbalized unde rstanding. Patient is stable for discharge. - Vital Signs Vital signs: Temp Pulse Resp BP Pulse Ox 97.2 F 10/06/19 01:43 Discharge - Discharge Clinical Impression: Tooth ache Condition: Stable Disposition: HOME, SELF-CARE Instructions: Penicillin V K ([facility]), Toothache ([facility]) Additional Instructions: You have been seen in the emergency department for a toothache. You may take ibuprofen 600 mg and Tylenol 1000 mg every 6 hours as needed for the pain. You have also been prescribed antibiotics. Please take the antibiotics as prescribed, even if you start to feel better. If you develop a fever greater than 100.4 F, or have any symptoms that are worrisome to you, please return to the emergency department. Please follow-up with a dentist this week in regards to your visit. Prescriptions: Penicillin V Potassium [Penicillin Vk 500 mg Tablet] 500 mg PO BID #20 tablet Referrals: [facility] [Provider Group] - Follow up in 1 week
== END 2019-10-06 01:58 | disposition home or self-care (01) ==
LOC: ER 01:32
DX: K08.89 Other specified disorders of teeth and supporting structures (principal)
CPT/HCPCS: 99282

== ENCOUNTER 2019-11-13 10:32 | Emergency (ER) | payer MEDICAID, OTHER ==
[2019-11-13 10:41] VITALS: BP 126/72
[2019-11-13] MEDS ORDERED: CLINDAMYCIN HCL 150 MG CAPSULE PO ONE (10:48)
[2019-11-13] MEDS ORDERED: LIDOCAINE 2% VISCOUS SOLN 15 ML UDCUP PO ONE (10:48)
[2019-11-13] MEDS ORDERED: IBUPROFEN 800 MG TABLET PO ONE (10:48)
--- NOTE | 2019-11-13 10:55 | ER Document Report ---
ED Oral Problem - General Chief Complaint: Toothache Stated Complaint: TOOTHPAIN Time Seen by Provider: 11/13/19 10:44 Mode of Arrival: Ambulatory Information source: Patient Notes: 33-year-old female presented to ED for complaint of dental pain. She states she was recently seen in the emergency room and started on penicillin VK and he got better for a while but now is back painful again her appointment is not until the end of the month to have the tooth removed. She does have a dental decay in the upper jaw that did have an abscess which is now popped. She does have bare nerves noted. I have ordered her clindamycin ibuprofen and viscous lidocaine to help with the pain until she can get her dental appointment. Patient is alert oriented respirations regular and unlabored speaking in full sentences. TRAVEL OUTSIDE OF THE [place] IN LAST 30 DAYS: No - HPI Patient complains to provider of: Toothache Onset: Other - 1 month Onset: Gradual Severity: Moderate Pain Level: 4 Associated symptoms: Toothache Worsened by: Cold Relieved by: Nothing Similar symptoms previously: Yes Recently seen / treated by doctor/dentist: Yes - Related Data Allergies/Adverse Reactions: No Known Allergies Allergy (Verified 11/13/19 10:49) Past Medical History - General Information source: Patient - Social History Smoking Status: Never Smoker Frequency of alcohol use: None Drug Abuse: None Family History: Reviewed & Not Pertinent Patient has suicidal ideation: No Patient has homicidal ideation: No - Past Medical History Cardiac Medical History: Reports: None Pulmonary Medical History: Reports: None EENT Medical History: Reports: None Neurological Medical History: Reports: Hx Migraine Endocrine Medical History: Reports: None Renal/ Medical History: Reports: Hx Kidney Stones Malignancy Medical History: Reports: None GI Medical History: Reports: None Musculoskeletal Medical History: Reports None Skin Medical History: Reports None Psychiatric Medical History: Reports: None Traumatic Medical History: Reports: None Infectious Medical History: Reports: None Past Surgical History: Reports: Hx Section, Hx Cholecystectomy, Hx Oral Surgery - Immunizations Hx Diphtheria, Pertussis, Tetanus Vaccination: Yes Hx Pneumococcal Vaccination: 04/28/00 Review of Systems - Review of Systems Constitutional: No symptoms reported EENT: Mouth pain, Dental problem Cardiovascular: No symptoms reported Respiratory: No symptoms reported Gastrointestinal: No symptoms reported Genitourinary: No symptoms reported Female Genitourinary: No symptoms reported Musculoskeletal: No symptoms reported Skin: No symptoms reported Hematologic/Lymphatic: No symptoms reported Neurological/Psychological: No symptoms reported -: Yes All other systems reviewed and negative Physical Exam - Vital signs Vitals: Temp Pulse Resp BP Pulse Ox 98.7 F 76 16 126/72 H 98 11/13/19 10:40 11/13/19 10:40 11/13/19 10:40 11/13/19 10:40 11/13/19 10:40 Interpretation: Normal - General General appearance: Appears well, Alert - HEENT Head: Normocephalic, Atraumatic Eyes: Normal Pupils: PERRL Ears: Normal External canal: Normal Tympanic membrane: Normal Sinus: Normal Nasal: Normal Mouth/Lips: Caries Mucous membranes: Normal Teeth diagram: 1 - Left upper dental cavity with large part of tooth missing. It is been painful for over a month. She has been to the emergency room in the past. She knows she needs to go to the oral surgeon to get the tooth removed. She states she cannot go to the end of the month. Pharynx: Normal Neck: Normal - Respiratory Respiratory status: No respiratory distress Chest status: Nontender Breath sounds: Normal Chest palpation: Normal - Cardiovascular Rhythm: Regular Heart sounds: Normal auscultation Murmur: No - Abdominal Inspection: Normal Distension: No distension Bowel sounds: Normal Tenderness: Nontender Organomegaly: No organomegaly - Back Back: Normal, Nontender - Extremities General upper extremity: Normal inspection, Nontender, Normal color, Normal ROM, Normal temperature General lower extremity: Normal inspection, Nontender, Normal color, Normal ROM, Normal temperature, Normal weight bearing. No: Catracho's sign - Neurological Neuro grossly intact: Yes Cognition: Normal Orientation: AAOx4 [place] Coma Scale Eye Opening: Spontaneous Adebayo Coma Scale Verbal: Oriented [place] Coma Scale Motor: Obeys Commands Adebayo Coma Scale Total: 15 Speech: Normal Motor strength normal: LUE, RUE, LLE, RLE Sensory: Normal - Psychological Associated symptoms: Normal affect, Normal mood - Skin Skin Temperature: Warm Skin Moisture: Dry Skin Color: Normal Course - Re-evaluation Re-evalutation: 11/13/19 19:22 Presentation is most consistent with likely an infected tooth. Airway is patent. Vitals within normal limits. Patient is able swallow without any difficulty. There is no significant facial swelling. No evidence of Isidro angina, apical abscess, or airway obstruction. Patient will be started on antibiotics. I've instructed to follow-up with dentistry as earliest ability for definitive management. At this time will discharge with return precautions and follow-up recommendations. Verbal discharge instructions given a the bedside and opportunity for questions given. Medication warnings reviewed. Patient is in agreement with this plan and has verbalized understanding of return precautions and the need for primary care follow-up in the next 24-72 hours. - Vital Signs Vital signs: Temp Pulse Resp BP Pulse Ox 98.7 F 76 16 126/72 H 98 11/13/19 10:40 11/13/19 10:40 11/13/19 10:40 11/13/19 10:40 11/13/19 10:40 Discharge - Discharge Clinical Impression: Pain due to dental caries Condition: Stable Disposition: HOME, SELF-CARE Additional Instructions: TOOTHACHE: Your pain is due to dental decay. The tooth must be repaired in order for you to feel better. You will, therefore, be referred to a dentist. We do not have dentists on the staff at [facility]. Severe swelling or drainage around a tooth usually means a dental abscess. This also requires evaluation and treatment by the dentist, but antibiotics may be prescribed while awaiting dental treatment. You should be rechecked immediately if you develop major swelling of the face, increasing pain, a lump in the jaw or gums, headache, difficulty swallowing, or fever. CLINDAMYCIN: You have been given a prescription for the antibiotic clindamycin. It is often prescribed for infections in the mouth, such as dental infections or abscesses, and for skin infections due to MRSA. It's important that you take all the medication, unless instructed otherwise by your physician. Failure to complete the entire course can result in relapse of your condition. Common side effects of antibiotics include nausea, intestinal cramping, or diarrhea. Women may develop vaginal yeast infections, and babies can get yeast (thrush) in the mouth following the use of antibiotics. Contact your physician if you develop significant side effects from this medication. Allergy to this antibiotic can result in hives, wheezing, faintness, or itching. If symptoms of allergy occur, stop the medication and call the doctor. Ibuprofen Ibuprofen is an excellent, safe drug for pain control. In addition, it has potent antiinflammatory effects which are beneficial, especially in the treatment of injuries, arthritis, or tendonitis. It's best to take ibuprofen with food. Persons with ulcer disease or allergy to aspirin should notify their physician of this before taking ibuprofen. Take the medication exactly as prescribed. Don't take additional doses unless instructed to do so by your doctor. If you develop wheezing, shortness of breath, hives, faintness, stomach pain, vomiting, or dark black stools, r eturn for re-evaluation at once. You have been given a syringe of viscous lidocaine. Please is a small amount on your finger and rub it to the gums and tooth that is causing the pain. You can do this every 4 hours. Please do not do it more often than every 4 hours. If you do it will erode the skin on your gums and actually cause you more pain. FOLLOW-UP CARE: You have been referred for follow-up care to the dentists listed below. Call the dentists office for an appointment as you were instructed or within the next two days. If you experience worsening or a significant change in your symptoms, notify the physician immediately or return to the Emergency Department at any time for re-evaluation. [facility] [address] [place] [address] [facility] [place] [address] [facility] [address] [facility] Emergency Department [facility] [address] [email or web address] [address] [place] [address] Friday- 8:00am to 5:00 pm Will see patients from other [facility]. Charges based on income and family size and accepts Medicare, Medicaid, and Insurances Will pull molars [facility] [place] [address] Hours of Operation 8:00 am - 4:30 pm weekdays The following dental offices accept Medicaid: [facility] Dr. Lema Dr. Moreno Dr. Choudhary Dr. Lamar Jarek Pérez, Dann, and Trudy oral surgery Dr. Atkins ([place]) Dr. Cooper ([place]) [facility] Drs. Ruiz and Florentin ([place]) Dr. Yanez ([place]) [facility] Dr. Shoemaker ([place]) Drs. Block and ([place]) Medicaid Care Line Prescriptions: Clindamycin HCl 300 mg PO Q6 #28 capsule Forms: Elevated Blood Pressure
== END 2019-11-13 11:00 | disposition home or self-care (01) ==
LOC: ER 10:32
DX: K02.9 Dental caries, unspecified (principal); K08.89 Other specified disorders of teeth and supporting structures
CPT/HCPCS: 99282; J3490 ×3